=== PATIENT | female | born 1960 | race Caucasian/White ===

== ENCOUNTER → 2016-09-21 | Outpatient (CLI) | payer BC ==
[~2016-09-21] MED LIST: ALBU17IN2 PO; ASPI1TAB24 PO; BENA25CA2 PO; COLA100C PO; CYMB60CA3 PO; DICY20TA11 PO; FISH1000 PO; FLON1SPR; KEPP750T3 PO; KLON1TAB PO; LISI40TAB PO; MAGN500C PO; MAXA10TA14 PO; MOBI7.5T10 PO; NORC10TA2 PO; PHEN1SUP7 PR; PRAV10TA PO; PREV30CA11 PO; ROPI1TAB PO; VERA120T2 PO; VITA200016 PO; ZANA4CAP PO; ZONI100C2 PO
--- NOTE | 2016-09-22 16:33 | REP ---
Thyroid uptake and scan: History: Dysphagia, thyroid nodule. Comparison: Thyroid sonography August 13, 2016 showed a 10 mm hypoechoic nodule in the right thyroid lobe. Technique: 351.0 microcuries of I-123 sodium iodide is ingested and 24 or uptake value and functional images are acquired. Findings: The uptake value at 24 hours is slightly low at 20.43% (25 to 35%). Functional images demonstrate that the right lobe is a little larger than the left. No cold or warm lesion is seen. The thyroid uptake is homogeneous. Impression: Homogeneous slightly decreased uptake. No cold or warm lesion seen. Signed by Ren Iqbal MD 09/23/2016 07:59 A
== END | disposition home or self-care (01) ==
LOC: M RAD 12:24
PROVIDERS: ATTEND Family Medicine
DX: E04.1 Nontoxic single thyroid nodule (principal); R13.10 Dysphagia, unspecified; E06.3 Autoimmune thyroiditis

== ENCOUNTER → 2016-10-12 | Outpatient (CLI) | payer BC ==
[2016-10-12 12:27] LABS: ALBUMIN/GLOBULIN RATIO 1.33 (1.00-1.93); ALKALINE PHOSPHATASE 75 U/L (45-117); ALT/SGPT 24 U/L (12-78); ANION GAP 10 MEQ/L (8-16); AST/SGOT 9 U/L (15-37); BILIRUBIN,TOTAL 0.3 MG/DL (0.2-1.0); BLOOD UREA NITROGEN 17 MG/DL (7-18); CALCIUM LEVEL 8.9 MG/DL (8.5-10.1); CARBON DIOXIDE LEVEL 26 MEQ/L (21-32); CHLORIDE LEVEL 109 MEQ/L (98-107); CREATININE FOR GFR 0.77 MG/DL (0.55-1.02); GLOMERULAR FILTRATION RATE > 60.0 (>51); GLUCOSE, FASTING 90 MG/DL (70-105); POTASSIUM SERUM 3.9 MEQ/L (3.5-5.1); SODIUM LEVEL 145 MEQ/L (136-145)
== END | disposition home or self-care (01) ==
LOC: M WUC 08:26
PROVIDERS: ATTEND Family Medicine
DX: R73.01 Impaired fasting glucose (principal); E06.3 Autoimmune thyroiditis

== ENCOUNTER → 2016-12-12 | Outpatient (CLI) | payer BC ==
[~2016-12-12] MED LIST changes: -COLA100C PO; +COLA100C3 PO
[2016-12-12 18:20] LABS: BASO % 0.6 % (0.0-1.0); EOS # 0.2 K/mm3 (0.0-0.50); EOS % 4.4 % (0.0-3.0); LARGE UNSTAINED CELL # 0.1 K/mm3 (0.0-0.4); LYMPH # 1.4 K/mm3 (1.5-4.5); LYMPH % 29.1 % (24.0-44.0); MEAN CORPUSCULAR HEMOGLOBIN 28.4 pg (27.0-33.0); MEAN CORPUSCULAR HGB CONC 31.6 g/dl (32.0-36.5); MEAN CORPUSCULAR VOLUME 89.9 fl (80.0-96.0); MONO # 0.2 K/mm3 (0.0-0.8); NEUTROPHILS # 2.8 K/mm3 (1.8-7.7); NEUTROPHILS % 59.8 % (36.0-66.0); PLATELET COUNT, AUTOMATED 309 k/mm3 (150-450); RED CELL DISTRIBUTION WIDTH 13.3 % (11.5-14.5); WHITE BLOOD COUNT 4.8 K/mm3 (4.0-10.0)
[2016-12-12 18:49] LABS: ANION GAP 10 MEQ/L (8-16); BLOOD UREA NITROGEN 16 MG/DL (7-18); CALCIUM LEVEL 9.1 MG/DL (8.5-10.1); CARBON DIOXIDE LEVEL 25 MEQ/L (21-32); CHLORIDE LEVEL 110 MEQ/L (98-107); CREATININE FOR GFR 0.84 MG/DL (0.55-1.02); GLOMERULAR FILTRATION RATE > 60.0 (>51); GLUCOSE, FASTING 87 MG/DL (70-105); MAGNESIUM LEVEL 2.1 MG/DL (1.8-2.4); SODIUM LEVEL 145 MEQ/L (136-145)
== END ==
LOC: M WUC 14:28
PROVIDERS: ATTEND Physician Assistant
DX: K52.9 Noninfective gastroenteritis and colitis, unspecified (principal)

== ENCOUNTER → 2017-01-04 | Outpatient (REF) | payer BC ==
[2017-01-04 14:01] LABS: ANION GAP 9 MEQ/L (8-16); BLOOD UREA NITROGEN 17 MG/DL (7-18); CALCIUM LEVEL 8.7 MG/DL (8.5-10.1); CARBON DIOXIDE LEVEL 21 MEQ/L (21-32); CHLORIDE LEVEL 111 MEQ/L (98-107); CREATININE FOR GFR 0.72 MG/DL (0.55-1.02); GLOMERULAR FILTRATION RATE > 60.0 (>51); GLUCOSE, FASTING 108 MG/DL (70-105); POTASSIUM SERUM 3.9 MEQ/L (3.5-5.1); SODIUM LEVEL 141 MEQ/L (136-145)
== END ==
LOC: M LAB REF 12:09
PROVIDERS: ATTEND Physician Assistant
DX: R73.01 Impaired fasting glucose (principal); E06.3 Autoimmune thyroiditis

== ENCOUNTER → 2017-01-06 | Outpatient (CLI) | payer BC ==
[~2017-01-06] MED LIST changes: +E-Z-GAS II EFFERVESCENT PACKET (SODIUM BICARB./CITRIC ACID/SIMETHICONE) As Ordered ONE; +E-Z-HD 98% w/w 340GM SUSP BTL As Ordered ONE; +E-Z-PAQUE 96% w/w SUSP 176GM BTL As Ordered ONE
--- NOTE | 2017-01-06 17:17 | REP ---
ESOPHAGRAM, AIR CONTRAST: The procedure was performed under the direct supervision of Dr. Flores. The images were reviewed with Dr. Flores. A single view PA chest x-ray is submitted as a risk mgr film. There is no change compared to a previous chest x-ray performed on 08/05/2016. Liquid barium and gas-producing granules were given in the erect position as well as liquid barium in the prone oblique positions in order to perform a double contrast esophagram examination. During the oral and pharyngeal stages of deglutition there is laryngeal penetration. Esophageal transport is prompt and efficient and there is no esophagitis, stricture or mucosal ring. There is a sliding type hiatal hernia present. There is full column gastroesophageal reflux demonstrated to above the level of the inez. IMPRESSION: 1. There is laryngeal penetration. 2. There is a sliding type hiatal hernia present. There is full column gastroesophageal reflux demonstrated to above the level of the inez. 44 seconds of fluoroscopy time was utilized for this procedure. Reviewed by HANNA Ruiz 01/07/2017 04:41 PEdited and Signed by Deejay Flores MD 01/07/2017 04:59 P
== END ==
LOC: M RAD 09:23
PROVIDERS: ATTEND Otolaryngology
DX: K21.9 Gastro-esophageal reflux disease without esophagitis (principal); K44.9 Diaphragmatic hernia without obstruction or gangrene

== ENCOUNTER → 2017-01-07 | Outpatient (REF) | payer BC ==
[~2017-01-07] MED LIST changes: -E-Z-GAS II EFFERVESCENT PACKET (SODIUM BICARB./CITRIC ACID/SIMETHICONE) As Ordered ONE; -E-Z-HD 98% w/w 340GM SUSP BTL As Ordered ONE; -E-Z-PAQUE 96% w/w SUSP 176GM BTL As Ordered ONE
[2017-01-07 19:49] LABS: CALCIUM OXALATE CRYSTALS MODERATE
== END ==
LOC: M LAB REF 17:17
PROVIDERS: ATTEND Physician Assistant
DX: N39.0 Urinary tract infection, site not specified (principal)

== ENCOUNTER → 2017-02-26 | Outpatient (CLI) | payer BC ==
[~2017-02-26] MED LIST changes: +E-Z-PAQUE 96% w/w SUSP 176GM BTL As Ordered ONE; +VARIBAR NECTAR 40% w/v 240ML SUSP BTL As Ordered ONE; +VARIBAR PUDDING 40% w/v 230ML TUBE As Ordered ONE
== END ==
LOC: M ST 10:37
PROVIDERS: ATTEND Otolaryngology
DX: R13.10 Dysphagia, unspecified (principal)
CPT/HCPCS: 74230; 92611; G8996; G8997; G8998

== ENCOUNTER → 2017-02-27 | Outpatient (CLI) | payer BC ==
[~2017-02-27] MED LIST changes: -E-Z-PAQUE 96% w/w SUSP 176GM BTL As Ordered ONE; -VARIBAR NECTAR 40% w/v 240ML SUSP BTL As Ordered ONE; -VARIBAR PUDDING 40% w/v 230ML TUBE As Ordered ONE
== END ==
LOC: M WUC 14:32
PROVIDERS: ATTEND Physician Assistant Medical
DX: R55 Syncope and collapse (principal)

== ENCOUNTER 2017-04-01 13:11 | Emergency (ER) | payer BC ==
[~2017-04-01] VITALS: Ht 172.7 cm; Wt 116.4 kg
[~2017-04-01 13:11] MED LIST changes: +ASPI-161 PO; -ASPI1TAB24 PO; -COLA100C3 PO; +COLA100C5 PO; +MOBI4TAB PO; -MOBI7.5T10 PO; -NORC10TA2 PO; +NORC10TA21 PO; -PRAV10TA PO; +PRAV10TA4 PO; +PREV1CAP PO; -PREV30CA11 PO
[2017-04-01] MEDS ORDERED: MONT10TA2 (13:29)
[2017-04-01] MEDS ORDERED: VERA300C (13:29)
[2017-04-01] MEDS ORDERED: PRAM0.5T4 (13:29)
[2017-04-01] MEDS ORDERED: MELO15TA4 (13:29)
[2017-04-01] MEDS ORDERED: VALS1TAB48 (13:29)
[2017-04-01] MEDS ORDERED: BREO1INH PO (13:29)
[2017-04-01] MEDS ORDERED: NITROGLYCERIN 0.4 MG SUBL TABLET SL PRN (15:00)
[2017-04-01] MEDS ORDERED: ASPIRIN 81 MG CHEW TABLET PO ONE (15:00)
[2017-04-01 15:32] LABS: BASO % 0.7 % (0.0-1.0); EOS # 0.2 K/mm3 (0.0-0.50); EOS % 3.6 % (0.0-3.0); LARGE UNSTAINED CELL # 0.1 K/mm3 (0.0-0.4); LARGE UNSTAINED CELL % 1.2 % (0.0-4.0); LYMPH # 1.1 K/mm3 (1.5-4.5); MEAN CORPUSCULAR HEMOGLOBIN 28.7 pg (27.0-33.0); MEAN CORPUSCULAR HGB CONC 32.7 g/dl (32.0-36.5); MEAN CORPUSCULAR VOLUME 87.7 fl (80.0-96.0); MONO # 0.3 K/mm3 (0.0-0.8); MONO % 4.9 % (0.0-5.0); NEUTROPHILS # 4.3 K/mm3 (1.8-7.7); NEUTROPHILS % 71.6 % (36.0-66.0); PLATELET COUNT, AUTOMATED 330 k/mm3 (150-450); RED CELL DISTRIBUTION WIDTH 14.2 % (11.5-14.5)
[2017-04-01 15:49] LABS: INR 0.95
--- NOTE | 2017-04-01 15:54 | REP ---
Bilateral deep vein duplex ultrasound of the lower extremities: The deep veins demonstrate normal compression, normal Doppler color flow and normal Doppler waveforms with respiration and augmentation at multiple levels from the popliteal veins to the common femoral veins bilaterally. Impression: There is no deep vein thrombus on the right on the left. Signed by Deejay Koroma MD 04/01/2017 03:45 P
[2017-04-01 15:57] LABS: ALBUMIN 3.7 GM/DL (3.2-5.2); ALBUMIN/GLOBULIN RATIO 1.32 (1.00-1.93); ALKALINE PHOSPHATASE 82 U/L (45-117); ALT/SGPT 27 U/L (12-78); ANION GAP 5 MEQ/L (8-16); AST/SGOT 9 U/L (15-37); BILIRUBIN,DIRECT < 0.1 MG/DL (0.0-0.2); BILIRUBIN,TOTAL 0.2 MG/DL (0.2-1.0); BLOOD UREA NITROGEN 23 MG/DL (7-18); CALCIUM LEVEL 8.5 MG/DL (8.5-10.1); CARBON DIOXIDE LEVEL 26 MEQ/L (21-32); CHLORIDE LEVEL 114 MEQ/L (98-107); CREATININE FOR GFR 0.61 MG/DL (0.55-1.02); GLOMERULAR FILTRATION RATE > 60.0 (>51); GLUCOSE, FASTING 82 MG/DL (70-105); POTASSIUM SERUM 3.7 MEQ/L (3.5-5.1); SODIUM LEVEL 145 MEQ/L (136-145); TOTAL PROTEIN 6.5 GM/DL (6.4-8.2)
--- NOTE | 2017-04-01 15:59 | REP ---
PA and lateral chest: Comparison is 08/05/2016. The lung milan are clear. The cardiac size is normal The guillaume, mediastinum, and bony thorax are unremarkable. Impression: Negative PA and lateral chest. There is no interval change. Signed by Deejay Koroma MD 04/01/2017 03:51 P
[2017-04-01] MEDS ORDERED: ISOVUE-370 76% 100ML VIAL (Q9967) As Ordered ONE (16:14)
[2017-04-01] MEDS ORDERED: ACETAMINOPHEN TAB 650MG DOSE (2X325MG) PO ONE (16:30)
--- NOTE | 2017-04-01 16:51 | REP ---
Chest CT with IV contrast, pulmonary artery CT angiography: Comparison is 04/18/2010. There are no emboli in the pulmonary trunk or central pulmonary arteries. There are no emboli in the lobe or segment branches. There are no infiltrates or effusions. There is a hiatal hernia, not present previously. There is a 5 ml pleural-based lung nodule anterolaterally in the right upper lobe on image 41. The There is 8 mm pleural-based nodule in the right upper lobe anterolaterally on image 42. There is no hilar or mediastinal adenopathy. There is no axillary adenopathy. The thoracic aorta is unremarkable. Cardiac size is normal. The visualized upper abdominal contents are unremarkable. There is no adrenal mass. There are surgical clips in the gallbladder fossa. Impression: There are no pulmonary emboli. There are no infiltrates or effusions. There is an 8 mm right upper lobe lung nodule and 5 mm right upper lobe lung nodule. Fleischner Society guidelines for follow up of the largest of these two lesions in a low risk patient is follow-up CT at 6-12 months, then consider CT and 18-24 months. For a high risk patient CT at 6-12 months, then CT and 18 24 months. Hiatal hernia. Signed by Deejay Koroma MD 04/01/2017 04:42 P
[2017-04-01] MEDS ORDERED: METOCLOPRAMIDE INJ 10MG/2ML VIAL (J2765) IV ONE (17:45)
[2017-04-01 20:33] VITALS: BP 138/52
--- NOTE | 2017-04-02 07:32 | ECGEPIP ---
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
--- NOTE | 2017-04-02 07:35 | ECGEPIP ---
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
--- NOTE | 2017-04-02 15:10 | ED PDOC ---
Post-Departure Follow-Up radiology report faxed to Yumiko Lamar MD Apr 02, 2017 15:10
--- NOTE | 2017-04-05 07:52 | ECGEPIP ---
Stationary ECG Study [facility] - ED Test Date: 2017-04-01 Pat Name: NIMO PARKS Department: Room: - Gender: F Cardiology Physician: : 1960 Requested By: ASHOK Woodard Order Number: [id number] Reading MD: Errol Beebe Measurements Intervals [place] Rate: 73 P: 52 MA: 161 QRS: 24 QRSD: 94 T: 9 QT: 395 QTc: 437 Interpretive Statements SINUS RHYTHM NONSPECIFIC T-WAVE ABNORMALITY SIMILAR TO PRIOR ON SAME DATE Electronically Signed On 04-05-2017 7:52:06 EDT by Errol Beebe
[2017-07-15] MEDS ORDERED: BENA25CA4 PO (15:06)
[2017-07-15] MEDS ORDERED: [UNRECOGNIZED DRUG - REMARK] PO (15:06)
[2017-07-15] MEDS ORDERED: PREV1CAP PO (15:06)
[2017-07-21] MEDS ORDERED: DOXY-278 PO (10:39)
[2017-07-21] MEDS ORDERED: REGL5TAB2 PO (13:45)
[2017-07-21] MEDS ORDERED: COLA100C5 PO (13:47)
== END 2017-04-01 20:33 | disposition home or self-care (01) ==
LOC: M ED 13:11
DX: R07.9 Chest pain, unspecified (principal); R91.8 Other nonspecific abnormal finding of lung field; R06.02 Shortness of breath; M79.661 Pain in right lower leg; R11.2 Nausea with vomiting, unspecified; I10 Essential (primary) hypertension; E78.5 Hyperlipidemia, unspecified; R56.9 Unspecified convulsions; K44.9 Diaphragmatic hernia without obstruction or gangrene; E06.3 Autoimmune thyroiditis; Z88.5 Allergy status to narcotic agent; Z88.2 Allergy status to sulfonamides; Z88.8 Allergy status to other drugs, medicaments and biological substances; Z91.040 Latex allergy status; Z79.899 Other long term (current) drug therapy; Z79.82 Long term (current) use of aspirin
CPT/HCPCS: 71020; 71275; 80048; 80076; 82550; 82553; 83690; 83880; 85025; 85610; 85730; 93005; 93041; 93970; 94760; 96374; 99285; J2765; Q9967

== ENCOUNTER → 2017-04-13 | Outpatient (CLI) | payer BC ==
[~2017-04-13] MED LIST changes: +BENA25CA4 PO; +BENT10CA PO; +BREO1INH PO; +CHLO125TA PO; +CLON1TAB PO; +DEXI30CA2 PO; +DOXY-278 PO; +FLUO10CA8 PO; +HYDR200T3 PO; +LIDO1OIN2 TOP; +MELO15TA4; +META1TAB22 PO; +MONT10TA2; +NITR4TASL SL; +OMEP40CA2 PO; +ONDA4TAB6 PO; +PRAM0.5T4; +PRAM0.5T4 PO; +REGL5TAB2 PO; +SING10TA32 PO; +VALS1TAB48; +VALS1TAB48 PO; +VERA300C; +VERA300C PO; +ZOLP10TA2 PO; +[UNRECOGNIZED DRUG - REMARK] PO
[2017-04-13 13:52] LABS: ANION GAP 11 MEQ/L (8-16); BLOOD UREA NITROGEN 12 MG/DL (7-18); CALCIUM LEVEL 9.5 MG/DL (8.5-10.1); CARBON DIOXIDE LEVEL 21 MEQ/L (21-32); CHLORIDE LEVEL 113 MEQ/L (98-107); CREATININE FOR GFR 0.67 MG/DL (0.55-1.02); FREE T4 1.02 NG/DL (0.76-1.46); GLOMERULAR FILTRATION RATE > 60.0 (>51); GLUCOSE, FASTING 82 MG/DL (70-105); SODIUM LEVEL 145 MEQ/L (136-145)
== END ==
LOC: M LAB 11:41
PROVIDERS: ATTEND Physician Assistant Medical
DX: I10 Essential (primary) hypertension (principal)

== ENCOUNTER → 2017-04-19 | Outpatient (REF) | payer BC | LOC: M LABNEURO 15:09 | PROVIDERS: ATTEND Physician Assistant Medical | DX: R56.9 Unspecified convulsions (principal) ==

== ENCOUNTER → 2017-04-22 | Outpatient (CLI) | payer BC ==
--- NOTE | 2017-04-22 10:15 | REP ---
Radionuclide gastric antrum study: Imaging is performed at 2-minute intervals for 90 minutes after having the patient ingest two scrambled eggs radiolabeled with 1.02 mCi of technetium 99m sulfur colloid. The T 1/2 is 250 minutes. Normal T 1/2 is 90 minutes. Impression: Delayed gastric emptying. Signed by Deejay Koroma MD 04/22/2017 10:05 A
== END ==
LOC: M RAD 07:29
PROVIDERS: ATTEND Internal Medicine Gastroenterology
DX: K30 Functional dyspepsia (principal)
CPT/HCPCS: 78264; A9541

== ENCOUNTER 2017-05-14 15:54 | Observation (INO) | payer BC ==
[~2017-05-14] VITALS: Ht 172.7 cm; Wt 113.5 kg
[~2017-05-14 15:54] MED LIST changes: -BENA25CA4 PO; -BENT10CA PO; -CHLO125TA PO; -CLON1TAB PO; -DEXI30CA2 PO; -DOXY-278 PO; -FLUO10CA8 PO; -HYDR200T3 PO; -LIDO1OIN2 TOP; -META1TAB22 PO; -NITR4TASL SL; -OMEP40CA2 PO; -ONDA4TAB6 PO; -PRAM0.5T4 PO; -REGL5TAB2 PO; -SING10TA32 PO; -VALS1TAB48 PO; -VERA300C PO; -ZOLP10TA2 PO; -[UNRECOGNIZED DRUG - REMARK] PO
[2017-05-14] MEDS ORDERED: PRAM0.5T4 PO (16:11)
[2017-05-14] MEDS ORDERED: VERA300C PO (16:11)
[2017-05-14] MEDS ORDERED: VALS1TAB48 PO (16:11)
[2017-05-14] MEDS ORDERED: SING10TA32 PO (16:11)
[2017-05-14] MEDS ORDERED: DEXI30CA2 PO (16:12)
[2017-05-14] MEDS ORDERED: CHLO125TA PO (16:12)
[2017-05-14] MEDS ORDERED: ZOLP10TA2 PO (16:13)
[2017-05-14] MEDS: NITROGLYCERIN 0.4 MG SUBL TABLET SL PRN ×3 (18:13→19:41)
--- NOTE | 2017-05-14 18:21 | REP ---
Clinical: Chest pain . Comparison: 04/01/2017 . Technique: PA and lateral. Findings: The mediastinum and cardiac silhouette are normal. The lung milan are clear and without acute consolidation, effusion, or pneumothorax. The skeletal structures are intact and normal. Impression: 1. No acute cardiopulmonary process. Signed by Miah Nick MD 05/14/2017 06:12 P
[2017-05-14 18:33] LABS: BASO % 0.5 % (0.0-1.0); EOS # 0.3 K/mm3 (0.0-0.50); EOS % 3.6 % (0.0-3.0); LARGE UNSTAINED CELL # 0.1 K/mm3 (0.0-0.4); LARGE UNSTAINED CELL % 0.7 % (0.0-4.0); LYMPH # 1.3 K/mm3 (1.5-4.5); LYMPH % 16.9 % (24.0-44.0); MEAN CORPUSCULAR HEMOGLOBIN 27.5 pg (27.0-33.0); MEAN CORPUSCULAR HGB CONC 32.4 g/dl (32.0-36.5); MEAN CORPUSCULAR VOLUME 84.7 fl (80.0-96.0); MONO # 0.3 K/mm3 (0.0-0.8); MONO % 4.4 % (0.0-5.0); NEUTROPHILS # 5.6 K/mm3 (1.8-7.7); PLATELET COUNT, AUTOMATED 384 k/mm3 (150-450); RED CELL DISTRIBUTION WIDTH 14.2 % (11.5-14.5); WHITE BLOOD COUNT 7.6 K/mm3 (4.0-10.0)
[2017-05-14 18:40] LABS: INR 0.91
[2017-05-14 19:11] LABS: ALBUMIN 3.6 GM/DL (3.2-5.2); ALBUMIN/GLOBULIN RATIO 1.09 (1.00-1.93); ALKALINE PHOSPHATASE 104 U/L (45-117); ALT/SGPT 20 U/L (12-78); ANION GAP 8 MEQ/L (8-16); AST/SGOT 9 U/L (15-37); BILIRUBIN,DIRECT < 0.1 MG/DL (0.0-0.2); BILIRUBIN,TOTAL 0.1 MG/DL (0.2-1.0); BLOOD UREA NITROGEN 14 MG/DL (7-18); CALCIUM LEVEL 9.1 MG/DL (8.5-10.1); CARBON DIOXIDE LEVEL 27 MEQ/L (21-32); CHLORIDE LEVEL 107 MEQ/L (98-107); GLOMERULAR FILTRATION RATE > 60.0 (>51); GLUCOSE, FASTING 86 MG/DL (70-105); POTASSIUM SERUM 3.8 MEQ/L (3.5-5.1); SODIUM LEVEL 142 MEQ/L (136-145); TOTAL PROTEIN 6.9 GM/DL (6.4-8.2)
[2017-05-14] MEDS ORDERED: ACETAMINOPHEN TAB 650MG DOSE (2X325MG) PO ONE (19:45)
[2017-05-14] MEDS ORDERED: ISOVUE-370 76% 100ML VIAL (Q9967) As Ordered ONE (20:20)
[2017-05-14] MEDS ORDERED: MORPHINE 4 MG/ML 1ML SYRINGE IV ONE (21:45)
[2017-05-14] MEDS ORDERED: ONDANSETRON 4MG/2ML VIAL (J2405) IV ONE (22:30)
[2017-05-14] MEDS ORDERED: NITROGLYCERIN 2% OINT 1 GM *U/D* PKT TOP ONE (22:30)
[2017-05-14] MEDS ORDERED: GI COCKTAIL 50ML BTL(HYOSCYAMINE/MAALOX/LIDOCAINE VISCOUS)(1:3:1) PO ONE (23:00)
[2017-05-14] MEDS ORDERED: clonazePAM 0.5 MG TAB PO ONE (23:30)
[2017-05-14] MEDS ORDERED: CLON1TAB PO (23:32)
[2017-05-14] MEDS ORDERED: META1TAB22 PO (23:35)
[2017-05-14] MEDS ORDERED: LIDO1OIN2 TOP (23:35)
[2017-05-14] MEDS ORDERED: FLUO10CA8 PO (23:35)
[2017-05-14] MEDS ORDERED: HYDR200T3 PO (23:35)
[2017-05-14] MEDS ORDERED: ONDA4TAB6 PO (23:35)
[2017-05-14] MEDS ORDERED: BENT10CA PO (23:35)
[2017-05-15] VITALS (9 sets, daily range): BP systolic 103–144; BP diastolic 51–82; PULSE 82–95
[2017-05-15] MEDS ORDERED: DEXTROSE 50% 50 ML SYRINGE IV PRN
[2017-05-15] MEDS ORDERED: GLUCOSE 4 GM CHEW TABLET PO PRN
[2017-05-15] MEDS ORDERED: METAXALONE 800 MG TABLET PO PRN
[2017-05-15] MEDS ORDERED: GLUCAGON FOR INJ 1 MG VIAL (J1610) SC PRN
[2017-05-15] MEDS ORDERED: RIZATRIPTAN BENZOATE 10 MG TAB PO PRN
[2017-05-15] MEDS ORDERED: ACETAMINOPHEN TAB 650MG DOSE (2X325MG) PO PRN
[2017-05-15] MEDS ORDERED: ALBUTEROL 90 MCG/ACT 8GM HFA INHALER INH PRN
--- NOTE | 2017-05-15 00:04 | HPEPDOC ---
General Date of Admission 05/15/17 at 1203AM Chief Complaint The patient is a 56-year-old female Presented to the ER with complaints of chest pain that started this afternoon. History of Present Illness Patient is a 56 year old female with a PMHx of HTN, DLP, DM2, PLACIDO on CPAP, Seizure disorder, Hashimotos thyroiditis, Rheumatoid arthritis, Migraine headaches, Possible Gastroparesis, Fibromyalgia, Anxiety / Depression. Patient presented to the ER, brought in by her because she experienced chest pain that started at 330PM today. She noted that she was in her bedroom getting ready when she experienced the pain. She describes the pain as sub- sternal, radiating to her neck / jaw and her left arm. She describes the pain as a 10/10, pressure-like nature, occurring continuously. She noted associated nausea, without vomiting, sweating and shortness of breath. She denied palpitations. Upon arrival to the ER she received nitroglycerine SL and had improvement in her chest pain. She denied any aggravating factors. Patient has been following with Dr. Goodwin as an outpatient. She had received Holter monitor last week, as well as an echocardiogram. Results of both are reported to be normal. She is scheduled to have a stress test in the next few weeks. While in the ER patient had a subsequent blood draw and had a seizure episode. She has been on Keppra and Zonisamide. She did not receive any medications to break the seizure. Seizure resolved on its own and she was without any post- ictal symptoms. Patient denied any abdominal pain, diarrhea or urinary discomfort. She did note constipation. Home Medications Scheduled (Aspirin Adult Low Dose) 81 Mg Tab, 81 MG PO DAILY, (Reported) (Flonase Allergy Relief) 50 Mcg/Act Spr, 50 MCG NA QHS, (Reported) (Dexilant) 30 Mg Cap, 30 MG PO DAILY, (Reported) Chlorthalidone (Chlorthalidone) 12.5 Mg Halftab, 12.5 MG PO DAILY, (Reported) Clonazepam (Klonopin) 1 Mg Tab, 1 MG PO DAILY, (Reported) Clonazepam (Clonazepam) 1 Mg Tab, 2 MG PO QHS, (Reported) Fluoxetine Hcl (Fluoxetine) 10 Mg Cap, 10 MG PO QHS, (Reported) Fluticasone/Vilanterol (Breo Ellipta 100-25 Mcg/INH) 1 Inh Inh, 1 INH PO DAILY, (Reported) Hydroxychloroquine Sulfate (Hydroxychloroquine Sulfat) 200 Mg Tab, 200 MG PO BID , (Reported) Levetiracetam (Keppra Xr) 750 Mg Tab, 750 MG PO BID, (Reported) Lidocaine HCl (Lidocaine 5% Ointment) 1 Dose/35.44 Gm Oint, 1 DOSE TOP DAILY, ( Reported) ALLPIES TO BACK AND SHOULDERS Montelukast Sodium (Singulair) 10 Mg Tab, 10 MG PO QHS, (Reported) Pramipexole Dihydrochloride (Pramipexole Dihydrochlori) 0.5 Mg Tab, 0.5 MG PO QID, (Reported) Pravastatin Sod (Pravastatin Sodium) 10 Mg Tab, 10 MG PO QHS, (Reported) Valsartan (Valsartan) 320 Mg Tab, 320 MG PO DAILY, (Reported) Verapamil Hcl (Verapamil HCl ER) 300 Mg Cap, 300 MG PO QHS, (Reported) Vitamin D (Vitamin D) 2,000 Unit Cap, 2,000 UNIT PO QHS, (Reported) Zolpidem Tartrate (Zolpidem Tartrate) 10 Mg Tab, 10 MG PO QHS, (Reported) Zonisamide (Zonisamide) 100 Mg Cap, 100 MG PO QAM, (Reported) Zonisamide (Zonisamide) 100 Mg Cap, 200 MG PO QHS, (Reported) Scheduled PRN Albuterol Sulfate (Proventil Hfa) 167 Puff/6.7 Gm Aers, 2 PUFFS PO Q4HP PRN for SHORTNESS OF BREATH, (Reported) Dicyclomine Hcl (Bentyl) 10 Mg Cap, 10 MG PO Q6H PRN for ABDOMINAL PAIN, ( Reported) Metaxalone (Metaxalone) 800 Mg Tab, 800 MG PO TID PRN for MUSCLE SPASMS, ( Reported) Ondansetron (Ondansetron Odt) 4 Mg Tab, 4 MG PO Q4H PRN for NAUSEA, (Reported) Rizatriptan Benzoate (Maxalt) 10 Mg Tab, 10 MG PO DAILY PRN for MIGRAINE, ( Reported) Allergies Coded Allergies: Latex (Verified Allergy, Mild, rash, 04/01/17) Codeine (Verified Allergy, Unknown, 12/13/12) Cyclobenzaprine (Verified Allergy, Unknown, 12/13/12) Sulfa Drugs (Verified Allergy, Unknown, 12/13/12) Sulfa Drugs Cross Reactors (Verified Allergy, Unknown, 12/13/12) Sulfamethoxazole (Verified Allergy, Unknown, 12/13/12) Trimethoprim (Verified Allergy, Unknown, 12/13/12) Past Medical History Medical History HTN, DLP, DM2, PLACIDO on CPAP, Seizure disorder, Hashimotos thyroiditis, Rheumatoid arthritis, Migraine headaches, Possible Gastroparesis, Fibromyalgia, Anxiety / Depression Surgical History Right knee surgery (patella repair) Right rotator cuff injury Cholecystectomy Tonsillectomy Tubal ligation Hernia Family History - Non-contributory Social History - Denies the use of tobacco or illicit drugs; Social alcohol use - Denies recent travel or sick contacts - Lives with - 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; 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 Review of Symptoms Other systems 10 point review of systems complete; all negative otherwise stated in HPI Vital Signs - Vitals: BP 135/62, HR 80, RR 18, Sat 97%RA, Temp 96.7F - General: Lying in bed, No acute distress, Speaking in full sentences, AAOx3 - HEENT: NC, AT, PERRLA, EOMI - CVS: RRR, +S1S2 - Lungs: Fair air entry bilaterally, Clear to auscultation, No wheezing / rales / rhonchi - Abdomen: Soft, Non-distended, Non-tender - Extremities: No lower extremity edema, No calf tenderness - Neuro: No focal motor or sensory deficit - Skin: No visible rashes Laboratory Data Labs 24H Laboratory Tests 2 05/14/17 18:25: White Blood Count 7.6, Red Blood Count 4.41, Hemoglobin 12.1, Hematocrit 37.3, Mean Corpuscular Volume 84.7, Mean Corpuscular Hemoglobin 27.5, Mean Corpuscular Hemoglobin Concent 32.4, Red Cell Distribution Width 14.2, Platelet Count 384, Neutrophils (%) (Auto) 74.0H, Lymphocytes (%) (Auto) 16.9L, Monocytes (%) (Auto) 4.4, Eosinophils (%) (Auto) 3.6H, Basophils (%) (Auto) 0.5 , Neutrophils # (Auto) 5.6, Lymphocytes # (Auto) 1.3L, Monocytes # (Auto) 0.3, Eosinophils # (Auto) 0.3, Basophils # (Auto) 0.0, Large Unclassified Cells % 0.7 , Large Unclassified Cells # 0.1, Prothrombin Time 12.3L, Prothromb Time International Ratio 0.91, Activated Partial Thromboplast Time 29.1, D-Dimer, Quantitative 359.3, Anion Gap 8, Glomerular Filtration Rate > 60.0, Calcium Level 9.1, Aspartate Amino Transf (AST/SGOT) 9L, Alanine Aminotransferase (ALT/ SGPT) 20, Alkaline Phosphatase 104, Total Bilirubin 0.1L, Direct Bilirubin < 0.1 , Total Creatine Kinase 81, Creatine Kinase MB 1.0, Creatine Kinase MB Relative Index 1.23, Troponin I < 0.02, B-Type Natriuretic Peptide 27.1, Total Protein 6.9, Albumin 3.6, Albumin/Globulin Ratio 1.09, Lipase 158 05/14/17 21:59: Total Creatine Kinase 81, Creatine Kinase MB 1.0, Creatine Kinase MB Relative Index 1.23, Troponin I < 0.02 CBC/BMP Laboratory Tests 05/14/17 18:25 Red Blood Count 4.41, Mean Corpuscular Volume 84.7, Mean Corpuscular Hemoglobin 27.5, Mean Corpuscular Hemoglobin Concent 32.4, Red Cell Distribution Width 14.2 , Neutrophils (%) (Auto) 74.0 H, Lymphocytes (%) (Auto) 16.9 L, Monocytes (%) ( Auto) 4.4, Eosinophils (%) (Auto) 3.6 H, Basophils (%) (Auto) 0.5, Neutrophils # (Auto) 5.6, Lymphocytes # (Auto) 1.3 L, Monocytes # (Auto) 0.3, Eosinophils # (Auto) 0.3, Basophils # (Auto) 0.0 Plan / VTE VTE Prophylaxis Ordered?: Yes Plan Plan Chest pain - possibly 2/2 cardiac etiology, possibly 2/2 anxiety, GI, less likely PE - Presented with typical chest pain, with associated nausea, diaphoresis and shortness of breath - Physical does not reveal and chest wall tenderness - Troponin x 2 sets negative - D-dimer not elevated - EKG does not reveal any ST segment deviations or T wave inversions - Will c/w trending cardiac enzymes - s/p Nitroglycerine in the ER x3; c/w Nitroglycerine paste - s/p GI cocktail in ER - Dr. Goodwin was contacted in the ER and had advised against transfer to another facility; had recommended cardiac monitoring and serial enzymes, as well as GI cocktail - c/w ASA 81, HTN - c/w Chlorthalidone and Valsartan - c/w Verapamil; will switch from ER to short acting q6h DLP - c/w Pravastatin DM2 - Not on any medications - Will start ISS while inpatient PLACIDO on CPAP - allow home CPAP use Asthma - c/w Montelukast and Albuterol PRN - Will switch Breo to Advair while inpatient Seizure disorder - Has had seizure episode in ER; notes that she gets frequent seizures even while outpatient - c/w Keppra and Zonisamide Hashimotos thyroiditis Rheumatoid arthritis - c/w Hydroxychloroquine Migraine headaches - c/w Rizatriptan Possible Gastroparesis - Only take a PPI for this - Has not had an EGD in the past Fibromyalgia Anxiety / Depression - c/w Clonazepam, Pramipexole and Fluoxetine - Hold Zolpidem Gastrointestinal prophylaxis - Will switch home PPI to Protonix IV DVT prophylaxis - Will start Lovenox DONY MILLAN MD May 15, 2017 00:04
[2017-05-15] MEDS: PANTOPRAZOLE 40MG INJ (PROTONIX) (C9113) IV SCH ×2 (01:45→21:44)
[2017-05-15] MEDS: ZONISAMIDE 100 MG CAP (ZONEGRAN) PO SCH ×3 (01:45→21:48)
[2017-05-15] MEDS: MONTELUKAST 10 MG TAB PO SCH ×2 (01:46→21:47)
[2017-05-15] MEDS: VITAMIN D 1,000 INTERNATIONAL UNITS TABLET PO SCH ×2 (01:46→21:48)
[2017-05-15] MEDS: HYDROXYCHLOROQUINE 200 MG TAB PO SCH ×3 (01:47→21:46)
[2017-05-15] MEDS: VERAPAMIL 80 MG TAB PO SCH ×4 (01:47→18:00)
[2017-05-15] MEDS: PRAMIPEXOLE 0.25 MG TAB PO SCH ×5 (01:47→21:46)
[2017-05-15] MEDS: FLUoxetine 10 MG CAP PO SCH ×2 (01:48→21:47)
[2017-05-15] MEDS: PRAVASTATIN 10 MG TAB PO SCH ×2 (01:48→21:46)
[2017-05-15] MEDS: ADVAIR HFA 230/21MCG INHALER INH SCH ×3 (01:51→20:13)
[2017-05-15] MEDS: FLUTICASONE PROP 0.05% NASAL SPRAY 16 GM (FLONASE) SCH ×2 (01:51→21:49)
[2017-05-15] MEDS: levETIRAcetam **XR** 750MG TABLET (KEPPRA XR) PO SCH ×2 (01:52→11:08)
[2017-05-15 04:35] LABS: BASO % 0.6 % (0.0-1.0); EOS # 0.1 K/mm3 (0.0-0.50); EOS % 2.4 % (0.0-3.0); LARGE UNSTAINED CELL # 0.1 K/mm3 (0.0-0.4); LARGE UNSTAINED CELL % 1.5 % (0.0-4.0); LYMPH # 1.2 K/mm3 (1.5-4.5); LYMPH % 19.3 % (24.0-44.0); MEAN CORPUSCULAR HEMOGLOBIN 27.4 pg (27.0-33.0); MEAN CORPUSCULAR HGB CONC 32.5 g/dl (32.0-36.5); MEAN CORPUSCULAR VOLUME 84.3 fl (80.0-96.0); MONO # 0.3 K/mm3 (0.0-0.8); NEUTROPHILS # 4.2 K/mm3 (1.8-7.7); NEUTROPHILS % 71.2 % (36.0-66.0); PLATELET COUNT, AUTOMATED 338 k/mm3 (150-450); RED CELL DISTRIBUTION WIDTH 14.3 % (11.5-14.5); WHITE BLOOD COUNT 5.9 K/mm3 (4.0-10.0)
[2017-05-15 05:46] LABS: ALBUMIN 3.3 GM/DL (3.2-5.2); ALBUMIN/GLOBULIN RATIO 0.92 (1.00-1.93); ALKALINE PHOSPHATASE 133 U/L (45-117); ALT/SGPT 37 U/L (12-78); ANION GAP 9 MEQ/L (8-16); AST/SGOT 39 U/L (15-37); BILIRUBIN,TOTAL 0.2 MG/DL (0.2-1.0); BLOOD UREA NITROGEN 12 MG/DL (7-18); CALCIUM LEVEL 8.5 MG/DL (8.5-10.1); CARBON DIOXIDE LEVEL 26 MEQ/L (21-32); CHLORIDE LEVEL 107 MEQ/L (98-107); CREATININE FOR GFR 0.79 MG/DL (0.55-1.02); GLOMERULAR FILTRATION RATE > 60.0 (>51); GLUCOSE, FASTING 100 MG/DL (70-105); MAGNESIUM LEVEL 2.2 MG/DL (1.8-2.4); POTASSIUM SERUM 3.3 MEQ/L (3.5-5.1); SODIUM LEVEL 142 MEQ/L (136-145); TOTAL PROTEIN 6.9 GM/DL (6.4-8.2)
[2017-05-15] MEDS: HumaLOG INSULIN (NovoLOG) PER UNIT SC SCH ×4 (07:30→22:48)
--- NOTE | 2017-05-15 09:59 | ECGEPIP ---
Stationary ECG Study [facility] Test Date: 2017-05-15 Pat Name: NIMO PARKS Department: Room: [place] [address] Gender: F Cd Technician: DELLA : 1960 Requested By: DONY MILLAN Order Number: [id number] Reading MD: Juni Goodwin Measurements Intervals [place] Rate: 70 P: 50 [place]: 181 QRS: 10 QRSD: 105 T: 31 QT: 394 QTc: 427 Interpretive Statements SINUS RHYTHM NONSPECIFIC T-WAVE ABNORMALITY No change from tracing 04/09/17. Electronically Signed On 05-15-2017 9:58:50 EDT by Juni Goodwin
[2017-05-15] MEDS: clonazePAM 1 MG TAB PO SCH ×2 (10:34→21:46)
[2017-05-15] MEDS: ENOXAPARIN 40 MG/0.4 ML SYRINGE (J1650) SC SCH (10:34)
[2017-05-15] MEDS: ASPIRIN 81 MG ENTERIC TAB PO SCH (10:35)
[2017-05-15] MEDS: VALSARTAN 80 MG TAB (DIOVAN) PO SCH (10:35)
[2017-05-15] MEDS: CHLORTHALIDONE 12.5MG PER 1/2 TABLET PO SCH (11:09)
[2017-05-15] MEDS: LIDOCAINE 5% OINT 30 GM TOP SCH (11:10)
[2017-05-15] MEDS ORDERED: POTASSIUM CHLORIDE 10 MEQ SR TABLET PO ONE (11:45)
[2017-05-15] MEDS ORDERED: ALBUTEROL SULFATE 2.5 MG/0.5 ML INH NEB SOLN NEB PRN (12:00)
--- NOTE | 2017-05-15 12:03 | IPNPDOC ---
Subjective Date Seen The patient was seen on 05/15/17. Subjective Chief Complaint/HPI The patient is a 56-year-old female admitted with a reason for visit of Chest Pain. Events since last encounter no chest pain or jaw pain this morning . yesterday subsided after 3 doses of nitro. Pateint has been having off and on chest pain 2 to 3 times a week for the whole summer and increasing sob. It had got so bad that she is not able to climb one fight of stairs now. Had seen Dr Goodwin 1 month ago , had gained lots of weight over a month and so started on HCTZ. last week had holter and echo done at the office. Objective Physical Examination General Exam: Positive: Alert, Cooperative, No Acute Distress Eye Exam: Positive: PERRLA, Conjunctiva & lids normal, EOMI, Negative: Sclera icteric ENT Exam: Positive: Atraumatic, Mucous membr. moist/pink, Pharynx Normal Neck Exam: Positive: Supple, Negative: JVD, thyromegaly Chest Exam: Positive: Clear to auscultation, Normal air movement Heart Exam: Positive: Rate Normal, Regular Rhythm, Normal S1, Normal S2, Negative: Murmurs, Rubs Telemetry: Positive: No significant arrhythmia Abdomen Exam: Positive: Normal bowel sounds, Soft, Negative: Tenderness, Hepatospenomegaly Extremity Exam: Positive: Normal pulses, Negative: Clubbing, Cyanosis, Edema Skin Exam: Positive: Nl turgor and temperature, Negative: Rash, Breakdown Assessment /Plan Problems (1) Chest pain Status: Acute Problem Text: EKGs show st-t wave abnormalities but no dynamic changes , cardiac enzymes her negative however patient is high risk for underlying CAD so will need further work up as an outpatient. Has been scheduled for stress test on jun 07 will monitor on telemetry. Discussed with Dr Goodwin about her echo ; shows normal EF, no pulmonary hypertension moderate mitral regurgitation. Holter showed normal rhythm with all her symptoms. continue statin, asa. (2) Dyspnea Status: Acute Problem Text: Echo with Dr goodwin showed normal EF of 65%, no pulmonary hypertension , no wall motion abnormality, moderate mitral regurgitation started recently on HCTZ with some loss in weight will continue the same. (3) Mitral valve prolapse Status: Chronic (4) Asthma Status: Chronic Problem Text: on advair, singulair continue albuterol nebs prn. (5) PLACIDO (obstructive sleep apnea) Status: Chronic Problem Text: uses CPAP (6) Diabetes Status: Chronic (7) Hypertension Status: Chronic Problem Text: continue verapamil, valsartan (8) Hyperlipidemia Status: Chronic Problem Text: continue statin (9) Seizure disorder Status: Chronic Problem Text: on keppra and zonisamide. (10) Rheumatoid arthritis Status: Chronic Problem Text: on HCQS (11) Anxiety and depression Status: Chronic Problem Text: on clonazepam and fluoxetine (12) Migraine Status: Chronic Problem Text: on verapamil (13) Fibromyalgia Status: Chronic Problem Text: on skelaxin (14) Gastroparesis Status: Chronic Problem Text: continue on GI coctail for now and pantoprazole. (15) Benita's thyroiditis Status: Chronic Plan/VTE VTE Prophylaxis Ordered?: Yes VS, I&O, 24H, Fishbone Vital Signs/I&O Vital Signs Date Time Temp Pulse Resp B/P (MAP) Pulse Ox O2 Delivery O2 Flow Rate FiO2 05/15/17 10:35 118/72 05/15/17 08:00 98.2 72 18 100 Room Air I&O- Last 24 Hours up to 6 AM 05/15/17 06:00 Intake Total 0 ml Balance 0 ml Laboratory Data 24H LABS Laboratory Tests 2 05/14/17 18:25: White Blood Count 7.6, Red Blood Count 4.41, Hemoglobin 12.1, Hematocrit 37.3, Mean Corpuscular Volume 84.7, Mean Corpuscular Hemoglobin 27.5, Mean Corpuscular Hemoglobin Concent 32.4, Red Cell Distribution Width 14.2, Platelet Count 384, Neutrophils (%) (Auto) 74.0H, Lymphocytes (%) (Auto) 16.9L, Monocytes (%) (Auto) 4.4, Eosinophils (%) (Auto) 3.6H, Basophils (%) (Auto) 0.5 , Neutrophils # (Auto) 5.6, Lymphocytes # (Auto) 1.3L, Monocytes # (Auto) 0.3, Eosinophils # (Auto) 0.3, Basophils # (Auto) 0.0, Large Unclassified Cells % 0.7 , Large Unclassified Cells # 0.1, Prothrombin Time 12.3L, Prothromb Time International Ratio 0.91, Activated Partial Thromboplast Time 29.1, D-Dimer, Quantitative 359.3, Anion Gap 8, Glomerular Filtration Rate > 60.0, Calcium Level 9.1, Aspartate Amino Transf (AST/SGOT) 9L, Alanine Aminotransferase (ALT/ SGPT) 20, Alkaline Phosphatase 104, Total Bilirubin 0.1L, Direct Bilirubin < 0.1 , Total Creatine Kinase 81, Creatine Kinase MB 1.0, Creatine Kinase MB Relative Index 1.23, Troponin I < 0.02, B-Type Natriuretic Peptide 27.1, Total Protein 6.9, Albumin 3.6, Albumin/Globulin Ratio 1.09, Lipase 158 05/14/17 21:59: Total Creatine Kinase 81, Creatine Kinase MB 1.0, Creatine Kinase MB Relative Index 1.23, Troponin I < 0.02 05/15/17 04:00: White Blood Count 5.9, Red Blood Count 4.12, Hemoglobin 11.3L, Hematocrit 34.8L , Mean Corpuscular Volume 84.3, Mean Corpuscular Hemoglobin 27.4, Mean Corpuscular Hemoglobin Concent 32.5, Red Cell Distribution Width 14.3, Platelet Count 338, Neutrophils (%) (Auto) 71.2H, Lymphocytes (%) (Auto) 19.3L, Monocytes (%) (Auto) 5.0, Eosinophils (%) (Auto) 2.4, Basophils (%) (Auto) 0.6, Neutrophils # (Auto) 4.2, Lymphocytes # (Auto) 1.2L, Monocytes # (Auto) 0.3, Eosinophils # (Auto) 0.1, Basophils # (Auto) 0.0, Large Unclassified Cells % 1.5 , Large Unclassified Cells # 0.1, Anion Gap 9, Glomerular Filtration Rate > 60.0 , Calcium Level 8.5, Aspartate Amino Transf (AST/SGOT) 39H, Alanine Aminotransferase (ALT/SGPT) 37, Alkaline Phosphatase 133H, Total Bilirubin 0.2# , Total Creatine Kinase 60, Creatine Kinase MB 1.0, Creatine Kinase MB Relative Index 1.66, Troponin I < 0.02, Total Protein 6.9, Albumin 3.3, Albumin/Globulin Ratio 0.92L, Blood Urea Nitrogen 12, Creatinine 0.79, Sodium Level 142, Potassium Level 3.3L, Chloride Level 107, Carbon Dioxide Level 26, Magnesium Level 2.2 05/15/17 09:57: Total Creatine Kinase 61, Creatine Kinase MB 1.0, Creatine Kinase MB Relative Index 1.63, Troponin I < 0.02 CBC/BMP Laboratory Tests 05/14/17 18:25 Red Blood Count 4.41, Mean Corpuscular Volume 84.7, Mean Corpuscular Hemoglobin 27.5, Mean Corpuscular Hemoglobin Concent 32.4, Red Cell Distribution Width 14.2 , Neutrophils (%) (Auto) 74.0 H, Lymphocytes (%) (Auto) 16.9 L, Monocytes (%) ( Auto) 4.4, Eosinophils (%) (Auto) 3.6 H, Basophils (%) (Auto) 0.5, Neutrophils # (Auto) 5.6, Lymphocytes # (Auto) 1.3 L, Monocytes # (Auto) 0.3, Eosinophils # (Auto) 0.3, Basophils # (Auto) 0.0 05/15/17 04:00 Red Blood Count 4.12, Mean Corpuscular Volume 84.3, Mean Corpuscular Hemoglobin 27.4, Mean Corpuscular Hemoglobin Concent 32.5, Red Cell Distribution Width 14.3 , Neutrophils (%) (Auto) 71.2 H, Lymphocytes (%) (Auto) 19.3 L, Monocytes (%) ( Auto) 5.0, Eosinophils (%) (Auto) 2.4, Basophils (%) (Auto) 0.6, Neutrophils # ( Auto) 4.2, Lymphocytes # (Auto) 1.2 L, Monocytes # (Auto) 0.3, Eosinophils # ( Auto) 0.1, Basophils # (Auto) 0.0, Calcium Level 8.5, Aspartate Amino Transf ( AST/SGOT) 39 H, Alanine Aminotransferase (ALT/SGPT) 37, Total Creatine Kinase 60 , Alkaline Phosphatase 133 H, Total Bilirubin 0.2 #, Total Protein 6.9, Albumin 3.3 GILMA ENRIQUEZ MD May 15, 2017 12:03
[2017-05-15] MEDS: NITROGLYCERIN 0.4 MG SUBL TABLET SL PRN (14:44)
[2017-05-15] MEDS ORDERED: GI COCKTAIL 50ML BTL(HYOSCYAMINE/MAALOX/LIDOCAINE VISCOUS)(1:3:1) PO ONE (16:00)
[2017-05-15] MEDS: ACETAMINOPHEN 500 MG TAB PO PRN (18:10)
--- NOTE | 2017-05-15 19:19 | ECGEPIP ---
Stationary ECG Study [facility] - ED Test Date: 2017-05-14 Pat Name: NIMO PARKS Department: Room: - Gender: F Jboss Architect: MIGUEL : 1960 Requested By: Errol Williamson Order Number: [id number] Reading MD: Ayaan Reynolds Measurements Intervals [place] Rate: 97 P: 54 [place]: 174 QRS: 23 QRSD: 110 T: 73 QT: 390 QTc: 496 Interpretive Statements SINUS RHYTHM LOW QRS VOLTAGE IN PRECORDIAL LEADS NONSPECIFIC ST & T-WAVE ABNORMALITY BASELINE ARTIFACT MAY AFFECT READING CW 03/[address] T WAVE CHANGES Electronically Signed On 05-15-2017 19:19:12 EDT by Ayaan Reynolds
--- NOTE | 2017-05-15 19:29 | ECGEPIP ---
Stationary ECG Study [facility] - ED Test Date: 2017-05-14 Pat Name: NIMO PARKS Department: Room: [place] [address] Gender: F Bisque Kiln Placer: christopher : 1960 Requested By: ASHOK Woodard Order Number: [id number] Reading MD: Ayaan Reynolds Measurements Intervals [place] Rate: 81 P: 50 [place]: 167 QRS: 18 QRSD: 94 T: 23 QT: 368 QTc: 430 Interpretive Statements SINUS RHYTHM LOW QRS VOLTAGE IN PRECORDIAL LEADS NONSPECIFIC T-WAVE ABNORMALITY CW 05/14/17 RATE DECREASED Electronically Signed On 05-15-2017 19:29:19 EDT by Ayaan Reynolds
--- NOTE | 2017-05-15 19:31 | ECGEPIP ---
Stationary ECG Study [facility] - ED Test Date: 2017-05-14 Pat Name: NIMO PARKS Department: Room: [place] [address] Gender: F Sack Department Supervisor: christopher : 1960 Requested By: ASHOK Woodard Order Number: [id number] Reading MD: Ayaan Reynolds Measurements Intervals [place] Rate: 79 P: [place]: 0 QRS: 13 QRSD: 98 T: 33 QT: 366 QTc: 422 Interpretive Statements TREMENDOUS BASELINE ARTIFACT UNABLE TO DEFINITIVELY DETERMINE RHYTHM THOUGH SUSPECT NSR LOW QRS VOLTAGE IN PRECORDIAL LEADS NONSPECIFIC T-WAVE ABNORMALITY CW 05/14/17 RATE DECREASED Electronically Signed On 05-15-2017 19:31:15 EDT by Ayaan Reynolds
[2017-05-16] VITALS (7 sets, daily range): BP systolic 103–136; BP diastolic 53–79
[2017-05-16] MEDS: VERAPAMIL 80 MG TAB PO SCH ×5 (00:39→23:34)
[2017-05-16] MEDS: ONDANSETRON 4 MG TAB (S0181) PO PRN ×3 (01:03→20:20)
[2017-05-16 05:20] LABS: BASO % 0.5 % (0.0-1.0); EOS # 0.2 K/mm3 (0.0-0.50); EOS % 3.4 % (0.0-3.0); LARGE UNSTAINED CELL # 0.1 K/mm3 (0.0-0.4); MEAN CORPUSCULAR HEMOGLOBIN 26.9 pg (27.0-33.0); MEAN CORPUSCULAR HGB CONC 31.4 g/dl (32.0-36.5); MEAN CORPUSCULAR VOLUME 85.7 fl (80.0-96.0); MONO # 0.3 K/mm3 (0.0-0.8); MONO % 4.5 % (0.0-5.0); NEUTROPHILS # 4.2 K/mm3 (1.8-7.7); NEUTROPHILS % 73.6 % (36.0-66.0); PLATELET COUNT, AUTOMATED 374 k/mm3 (150-450); RED CELL DISTRIBUTION WIDTH 14.4 % (11.5-14.5); WHITE BLOOD COUNT 5.7 K/mm3 (4.0-10.0)
[2017-05-16] MEDS: ACETAMINOPHEN 500 MG TAB PO PRN (05:32)
[2017-05-16 05:38] LABS: ALBUMIN 3.3 GM/DL (3.2-5.2); ALBUMIN/GLOBULIN RATIO 0.94 (1.00-1.93); ALKALINE PHOSPHATASE 107 U/L (45-117); ALT/SGPT 28 U/L (12-78); ANION GAP 8 MEQ/L (8-16); AST/SGOT 15 U/L (15-37); BILIRUBIN,TOTAL 0.2 MG/DL (0.2-1.0); BLOOD UREA NITROGEN 13 MG/DL (7-18); CALCIUM LEVEL 8.7 MG/DL (8.5-10.1); CARBON DIOXIDE LEVEL 26 MEQ/L (21-32); CHLORIDE LEVEL 107 MEQ/L (98-107); CREATININE FOR GFR 0.77 MG/DL (0.55-1.02); GLOMERULAR FILTRATION RATE > 60.0 (>51); GLUCOSE, FASTING 105 MG/DL (70-105); MAGNESIUM LEVEL 2.4 MG/DL (1.8-2.4); POTASSIUM SERUM 3.5 MEQ/L (3.5-5.1); SODIUM LEVEL 141 MEQ/L (136-145); TOTAL PROTEIN 6.8 GM/DL (6.4-8.2)
[2017-05-16] MEDS: ADVAIR HFA 230/21MCG INHALER INH SCH ×2 (07:13→20:28)
[2017-05-16] MEDS: clonazePAM 1 MG TAB PO SCH ×2 (08:00→20:19)
[2017-05-16] MEDS ORDERED: INFLUENZA QUADRIVALENT PF VACCINE 0.5ML SYRINGE (90686) IM ONE (09:00)
[2017-05-16] MEDS: HumaLOG INSULIN (NovoLOG) PER UNIT SC SCH ×4 (09:28→20:07)
[2017-05-16] MEDS: LIDOCAINE 5% OINT 30 GM TOP SCH (09:29)
[2017-05-16] MEDS: ENOXAPARIN 40 MG/0.4 ML SYRINGE (J1650) SC SCH (09:29)
[2017-05-16] MEDS: VALSARTAN 80 MG TAB (DIOVAN) PO SCH (09:30)
[2017-05-16] MEDS: ASPIRIN 81 MG ENTERIC TAB PO SCH (09:31)
[2017-05-16] MEDS: CHLORTHALIDONE 12.5MG PER 1/2 TABLET PO SCH (09:31)
[2017-05-16] MEDS: levETIRAcetam **XR** 750MG TABLET (KEPPRA XR) PO SCH ×2 (09:31→20:20)
[2017-05-16] MEDS: HYDROXYCHLOROQUINE 200 MG TAB PO SCH ×2 (09:31→20:19)
[2017-05-16] MEDS: PRAMIPEXOLE 0.25 MG TAB PO SCH ×4 (09:31→20:19)
[2017-05-16] MEDS: ZONISAMIDE 100 MG CAP (ZONEGRAN) PO SCH ×2 (09:32→20:20)
[2017-05-16] MEDS ORDERED: RIZATRIPTAN MLT 10 MG TAB PO PRN (10:15)
--- NOTE | 2017-05-16 11:38 | IPNPDOC ---
Subjective Date Seen The patient was seen on 05/16/17. Subjective Chief Complaint/HPI The patient is a 56-year-old female admitted with a reason for visit of Chest Pain. Events since last encounter patient continues to have sharp pains in the left costochondral junction second and third extending towards the axilla which is worse with movement of the left arm, had multiple cardiac markers and ekgs . tele did show 2 episodes of narrow complex arrhythmia of less than 30 seconds looks like MAT or afib. this am with severe headache with nausea, poor appetite , vomited last night . says is having a migraine attack. Objective Physical Examination General Exam: Positive: Alert, Cooperative, No Acute Distress Eye Exam: Positive: PERRLA, Conjunctiva & lids normal, EOMI, Negative: Sclera icteric ENT Exam: Positive: Atraumatic, Mucous membr. moist/pink, Pharynx Normal Neck Exam: Positive: Supple, Negative: JVD, thyromegaly Chest Exam: Positive: Clear to auscultation, Normal air movement Heart Exam: Positive: Rate Normal, Regular Rhythm, Normal S1, Normal S2, Negative: Murmurs, Rubs Telemetry: Positive: No significant arrhythmia Abdomen Exam: Positive: Normal bowel sounds, Soft, Negative: Tenderness, Hepatospenomegaly Extremity Exam: Positive: Normal pulses, Negative: Clubbing, Cyanosis, Edema Skin Exam: Positive: Nl turgor and temperature, Negative: Rash, Breakdown Assessment /Plan Problems (1) Chest pain Status: Acute Problem Text: Most probably musculoskeletal in nature. Vs GERD or esophageal spasm as did have some response to nitro. EKGs show st-t wave abnormalities but no dynamic changes , cardiac enzymes her negative however patient is high risk for underlying CAD so will need further work up as an outpatient. Has been scheduled for stress test on jun 07 will monitor on telemetry. Discussed with Dr Goodwin about her echo ; shows normal EF, no pulmonary hypertension moderate mitral regurgitation. Holter showed normal rhythm with all her symptoms. continue statin, asa. (2) Dyspnea Status: Acute Problem Text: Echo with Dr goodwin showed normal EF of 65%, no pulmonary hypertension , no wall motion abnormality, moderate mitral regurgitation started recently on HCTZ with some loss in weight will continue the same. (3) Mitral valve prolapse Status: Chronic (4) Asthma Status: Chronic Problem Text: on advair, singulair continue albuterol nebs prn. (5) PLACIDO (obstructive sleep apnea) Status: Chronic Problem Text: uses CPAP (6) Diabetes Status: Chronic (7) Hypertension Status: Chronic Problem Text: continue verapamil, valsartan (8) Hyperlipidemia Status: Chronic Problem Text: continue statin (9) Seizure disorder Status: Chronic Problem Text: on keppra and zonisamide. (10) Rheumatoid arthritis Status: Chronic Problem Text: on HCQS (11) Anxiety and depression Status: Chronic Problem Text: on clonazepam and fluoxetine (12) Migraine Status: Chronic Problem Text: on verapamil today having an acute attack will give rizatriptan. (13) Fibromyalgia Status: Chronic Problem Text: on skelaxin (14) Gastroparesis Status: Chronic Problem Text: continue on GI coctail for now and pantoprazole. (15) Benita's thyroiditis Status: Chronic Plan/VTE VTE Prophylaxis Ordered?: Yes VS, I&O, 24H, Fishbone Vital Signs/I&O Vital Signs Date Time Temp Pulse Resp B/P (MAP) Pulse Ox O2 Delivery O2 Flow Rate FiO2 05/16/17 09:30 119/62 05/16/17 08:00 97.3 90 18 97 Room Air I&O- Last 24 Hours up to 6 AM 05/16/17 06:00 Intake Total 660 ml Output Total 1350 ml Balance -690 ml Laboratory Data 24H LABS Laboratory Tests 2 05/15/17 15:07: Total Creatine Kinase 71, Creatine Kinase MB 1.0, Creatine Kinase MB Relative Index 1.40, Troponin I < 0.02 05/16/17 04:28: White Blood Count 5.7, Red Blood Count 4.22, Hemoglobin 11.4L, Hematocrit 36.1, Mean Corpuscular Volume 85.7, Mean Corpuscular Hemoglobin 26.9L, Mean Corpuscular Hemoglobin Concent 31.4L, Red Cell Distribution Width 14.4, Platelet Count 374, Neutrophils (%) (Auto) 73.6H, Lymphocytes (%) (Auto) 17.0L, Monocytes (%) (Auto) 4.5, Eosinophils (%) (Auto) 3.4H, Basophils (%) (Auto) 0.5 , Neutrophils # (Auto) 4.2, Lymphocytes # (Auto) 1.0L, Monocytes # (Auto) 0.3, Eosinophils # (Auto) 0.2, Basophils # (Auto) 0.0, Large Unclassified Cells % 1.0 , Large Unclassified Cells # 0.1, Anion Gap 8, Glomerular Filtration Rate > 60.0 , Blood Urea Nitrogen 13, Creatinine 0.77, Sodium Level 141, Potassium Level 3.5 , Chloride Level 107, Carbon Dioxide Level 26, Calcium Level 8.7, Aspartate Amino Transf (AST/SGOT) 15, Alanine Aminotransferase (ALT/SGPT) 28, Alkaline Phosphatase 107, Total Bilirubin 0.2, Total Protein 6.8, Albumin 3.3, Magnesium Level 2.4, Albumin/Globulin Ratio 0.94L CBC/BMP Laboratory Tests 05/16/17 04:28 Red Blood Count 4.22, Mean Corpuscular Volume 85.7, Mean Corpuscular Hemoglobin 26.9 L, Mean Corpuscular Hemoglobin Concent 31.4 L, Red Cell Distribution Width 14.4, Neutrophils (%) (Auto) 73.6 H, Lymphocytes (%) (Auto) 17.0 L, Monocytes (% ) (Auto) 4.5, Eosinophils (%) (Auto) 3.4 H, Basophils (%) (Auto) 0.5, Neutrophils # (Auto) 4.2, Lymphocytes # (Auto) 1.0 L, Monocytes # (Auto) 0.3, Eosinophils # (Auto) 0.2, Basophils # (Auto) 0.0, Calcium Level 8.7, Aspartate Amino Transf (AST/SGOT) 15, Alanine Aminotransferase (ALT/SGPT) 28, Alkaline Phosphatase 107, Total Bilirubin 0.2, Total Protein 6.8, Albumin 3.3 GILMA ENRIQUEZ MD May 16, 2017 11:38
[2017-05-16] MEDS ORDERED: KETOROLAC 30 MG/ML VIAL (J1885) IV ONE (12:00)
[2017-05-16] MEDS ORDERED: INFLUENZA QUADRIVALENT PF VACCINE 0.5ML SYRINGE (90686) IM PRN (12:15)
--- NOTE | 2017-05-16 13:30 | ECGEPIP ---
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
[2017-05-16] MEDS: PANTOPRAZOLE 40MG INJ (PROTONIX) (C9113) IV SCH (20:18)
[2017-05-16] MEDS: MONTELUKAST 10 MG TAB PO SCH (20:19)
[2017-05-16] MEDS: VITAMIN D 1,000 INTERNATIONAL UNITS TABLET PO SCH (20:19)
[2017-05-16] MEDS: PRAVASTATIN 10 MG TAB PO SCH (20:20)
[2017-05-16] MEDS: FLUoxetine 10 MG CAP PO SCH (20:20)
[2017-05-16] MEDS: FLUTICASONE PROP 0.05% NASAL SPRAY 16 GM (FLONASE) SCH (20:20)
[2017-05-17 04:00] VITALS: BP 119/64
[2017-05-17] MEDS ORDERED: KETOROLAC 30 MG/ML VIAL (J1885) IV ONE (05:15)
[2017-05-17] MEDS: VERAPAMIL 80 MG TAB PO SCH ×2 (05:25→11:43)
[2017-05-17 05:50] LABS: BASO % 0.6 % (0.0-1.0); EOS # 0.2 K/mm3 (0.0-0.50); EOS % 3.2 % (0.0-3.0); LARGE UNSTAINED CELL # 0.1 K/mm3 (0.0-0.4); LARGE UNSTAINED CELL % 1.6 % (0.0-4.0); LYMPH # 0.8 K/mm3 (1.5-4.5); MEAN CORPUSCULAR HEMOGLOBIN 27.7 pg (27.0-33.0); MEAN CORPUSCULAR HGB CONC 32.1 g/dl (32.0-36.5); MEAN CORPUSCULAR VOLUME 86.3 fl (80.0-96.0); MONO # 0.3 K/mm3 (0.0-0.8); MONO % 4.6 % (0.0-5.0); NEUTROPHILS # 4.1 K/mm3 (1.8-7.7); PLATELET COUNT, AUTOMATED 335 k/mm3 (150-450); RED CELL DISTRIBUTION WIDTH 14.5 % (11.5-14.5); WHITE BLOOD COUNT 5.4 K/mm3 (4.0-10.0)
[2017-05-17 05:52] LABS: ALBUMIN 3.3 GM/DL (3.2-5.2); ALBUMIN/GLOBULIN RATIO 1.03 (1.00-1.93); ALKALINE PHOSPHATASE 100 U/L (45-117); ALT/SGPT 26 U/L (12-78); ANION GAP 9 MEQ/L (8-16); AST/SGOT 10 U/L (15-37); BILIRUBIN,TOTAL 0.2 MG/DL (0.2-1.0); BLOOD UREA NITROGEN 17 MG/DL (7-18); CALCIUM LEVEL 8.9 MG/DL (8.5-10.1); CARBON DIOXIDE LEVEL 26 MEQ/L (21-32); CHLORIDE LEVEL 106 MEQ/L (98-107); CREATININE FOR GFR 0.85 MG/DL (0.55-1.02); GLOMERULAR FILTRATION RATE > 60.0 (>51); GLUCOSE, FASTING 110 MG/DL (70-105); MAGNESIUM LEVEL 2.4 MG/DL (1.8-2.4); POTASSIUM SERUM 3.8 MEQ/L (3.5-5.1); SODIUM LEVEL 141 MEQ/L (136-145); TOTAL PROTEIN 6.5 GM/DL (6.4-8.2)
[2017-05-17] MEDS: ADVAIR HFA 230/21MCG INHALER INH SCH (07:02)
[2017-05-17 07:30] VITALS: BP 113/68
[2017-05-17] MEDS: ENOXAPARIN 40 MG/0.4 ML SYRINGE (J1650) SC SCH (08:47)
[2017-05-17] MEDS: HumaLOG INSULIN (NovoLOG) PER UNIT SC SCH ×2 (08:47→11:44)
[2017-05-17] MEDS: CHLORTHALIDONE 12.5MG PER 1/2 TABLET PO SCH (08:47)
[2017-05-17] MEDS: PRAMIPEXOLE 0.25 MG TAB PO SCH ×2 (08:48→11:41)
[2017-05-17] MEDS: levETIRAcetam **XR** 750MG TABLET (KEPPRA XR) PO SCH (08:48)
[2017-05-17] MEDS: HYDROXYCHLOROQUINE 200 MG TAB PO SCH (08:48)
[2017-05-17] MEDS: clonazePAM 1 MG TAB PO SCH (08:48)
[2017-05-17] MEDS: ZONISAMIDE 100 MG CAP (ZONEGRAN) PO SCH (08:48)
[2017-05-17] MEDS: VALSARTAN 80 MG TAB (DIOVAN) PO SCH (08:48)
[2017-05-17] MEDS: ASPIRIN 81 MG ENTERIC TAB PO SCH (08:48)
[2017-05-17] MEDS: LIDOCAINE 5% OINT 30 GM TOP SCH (08:49)
[2017-05-17] MEDS ORDERED: NITR4TASL SL (10:58)
--- NOTE | 2017-05-17 11:03 | IPNPDOC ---
Subjective Date Seen The patient was seen on 05/17/17. Subjective Chief Complaint/HPI The patient is a 56-year-old female admitted with a reason for visit of Chest Pain. Events since last encounter feeling better , having some chest pain off and on but better , no headache this am . Objective Physical Examination General Exam: Positive: Alert, Cooperative, No Acute Distress Eye Exam: Positive: PERRLA, Conjunctiva & lids normal, EOMI, Negative: Sclera icteric ENT Exam: Positive: Atraumatic, Mucous membr. moist/pink, Pharynx Normal Neck Exam: Positive: Supple, Negative: JVD, thyromegaly Chest Exam: Positive: Clear to auscultation, Normal air movement Heart Exam: Positive: Rate Normal, Regular Rhythm, Normal S1, Normal S2, Negative: Murmurs, Rubs Telemetry: Positive: No significant arrhythmia Abdomen Exam: Positive: Normal bowel sounds, Soft, Negative: Tenderness, Hepatospenomegaly Extremity Exam: Positive: Normal pulses, Negative: Clubbing, Cyanosis, Edema Skin Exam: Positive: Nl turgor and temperature, Negative: Rash, Breakdown Assessment /Plan Problems (1) Chest pain Status: Acute Problem Text: Most probably musculoskeletal in nature. Vs GERD or esophageal spasm as did have some response to nitro. EKGs show st-t wave abnormalities but no dynamic changes , cardiac enzymes her negative however patient is high risk for underlying CAD so will need further work up as an outpatient. Has been scheduled for stress test on jun 07 will monitor on telemetry. Discussed with Dr Goodwin about her echo ; shows normal EF, no pulmonary hypertension moderate mitral regurgitation. Holter showed normal rhythm with all her symptoms. continue statin, asa. (2) Dyspnea Status: Acute Problem Text: Echo with Dr goodwin showed normal EF of 65%, no pulmonary hypertension , no wall motion abnormality, moderate mitral regurgitation started recently on HCTZ with some loss in weight will continue the same. (3) Mitral valve prolapse Status: Chronic (4) Asthma Status: Chronic Problem Text: on advair, singulair continue albuterol nebs prn. (5) PLACIDO (obstructive sleep apnea) Status: Chronic Problem Text: uses CPAP (6) Diabetes Status: Chronic (7) Hypertension Status: Chronic Problem Text: continue verapamil, valsartan (8) Hyperlipidemia Status: Chronic Problem Text: continue statin (9) Seizure disorder Status: Chronic Problem Text: on keppra and zonisamide. (10) Rheumatoid arthritis Status: Chronic Problem Text: on HCQS (11) Anxiety and depression Status: Chronic Problem Text: on clonazepam and fluoxetine (12) Migraine Status: Chronic Problem Text: on verapamil and rizatriptan prn (13) Fibromyalgia Status: Chronic Problem Text: on skelaxin (14) Gastroparesis Status: Chronic Problem Text: continue on GI coctail for now and pantoprazole. (15) Benita's thyroiditis Status: Chronic Plan/VTE VTE Prophylaxis Ordered?: Yes Disposition discharge home VS, [facility]&O, [facility] Vital Signs/I&O Vital Signs Date Time Temp Pulse Resp B/P (MAP) Pulse Ox O2 Delivery O2 Flow Rate FiO2 05/17/17 08:48 119/64 05/17/17 07:30 96.0 83 18 100 NIPPV (BIPAP/CPAP) I&O- Last 24 Hours up to 6 AM 05/17/17 06:00 Intake Total 525 ml Output Total 550 ml Balance -25 ml Laboratory Data 24H LABS Laboratory Tests 2 05/17/17 04:34: White Blood Count 5.4, Red Blood Count 3.92L, Hemoglobin 10.8L, Hematocrit 33.8L , Mean Corpuscular Volume 86.3, Mean Corpuscular Hemoglobin 27.7, Mean Corpuscular Hemoglobin Concent 32.1, Red Cell Distribution Width 14.5, Platelet Count 335, Neutrophils (%) (Auto) 75.0H, Lymphocytes (%) (Auto) 15.0L, Monocytes (%) (Auto) 4.6, Eosinophils (%) (Auto) 3.2H, Basophils (%) (Auto) 0.6 , Neutrophils # (Auto) 4.1, Lymphocytes # (Auto) 0.8L, Monocytes # (Auto) 0.3, Eosinophils # (Auto) 0.2, Basophils # (Auto) 0.0, Large Unclassified Cells % 1.6 , Large Unclassified Cells # 0.1, Anion Gap 9, Glomerular Filtration Rate > 60.0 , Blood Urea Nitrogen 17, Creatinine 0.85, Sodium Level 141, Potassium Level 3.8 , Chloride Level 106, Carbon Dioxide Level 26, Calcium Level 8.9, Aspartate Amino Transf (AST/SGOT) 10L, Alanine Aminotransferase (ALT/SGPT) 26, Alkaline Phosphatase 100, Total Bilirubin 0.2, Total Protein 6.5, Albumin 3.3, Magnesium Level 2.4, Albumin/Globulin Ratio 1.03 CBC/BMP Laboratory Tests 05/17/17 04:34 Red Blood Count 3.92 L, Mean Corpuscular Volume 86.3, Mean Corpuscular Hemoglobin 27.7, Mean Corpuscular Hemoglobin Concent 32.1, Red Cell Distribution Width 14.5, Neutrophils (%) (Auto) 75.0 H, Lymphocytes (%) (Auto) 15.0 L, Monocytes (%) (Auto) 4.6, Eosinophils (%) (Auto) 3.2 H, Basophils (%) ( Auto) 0.6, Neutrophils # (Auto) 4.1, Lymphocytes # (Auto) 0.8 L, Monocytes # ( Auto) 0.3, Eosinophils # (Auto) 0.2, Basophils # (Auto) 0.0, Calcium Level 8.9, Aspartate Amino Transf (AST/SGOT) 10 L, Alanine Aminotransferase (ALT/SGPT) 26, Alkaline Phosphatase 100, Total Bilirubin 0.2, Total Protein 6.5, Albumin 3.3 GILMA ENRIQUEZ MD May 17, 2017 11:03
[2017-05-17] MEDS ORDERED: INFLUENZA QUADRIVALENT PF VACCINE 0.5ML SYRINGE (90686) IM PRN (11:05)
[2017-05-17 11:43] VITALS: BP 124/78
[2017-05-17] MEDS ORDERED: OMEP40CA2 PO (13:15)
[2017-07-15] MEDS ORDERED: PREV1CAP PO (15:06)
[2017-07-15] MEDS ORDERED: [UNRECOGNIZED DRUG - REMARK] PO (15:06)
[2017-07-15] MEDS ORDERED: BENA25CA4 PO (15:06)
[2017-07-21] MEDS ORDERED: DOXY-278 PO (10:39)
[2017-07-21] MEDS ORDERED: REGL5TAB2 PO (13:45)
[2017-07-21] MEDS ORDERED: COLA100C5 PO (13:47)
== END 2017-05-17 12:15 | disposition home or self-care (01) ==
LOC: M ED 15:54 → M ED INP 15:55 → M PCU 05-15 05:15
PROVIDERS: ADMIT Internal Medicine; ATTEND Internal Medicine Nephrology
DX: R07.9 Chest pain, unspecified (principal); G40.909 Epilepsy, unspecified, not intractable, without status epilepticus; R06.02 Shortness of breath; I34.0 Nonrheumatic mitral (valve) insufficiency; I34.1 Nonrheumatic mitral (valve) prolapse; J45.909 Unspecified asthma, uncomplicated; G47.33 Obstructive sleep apnea (adult) (pediatric); I10 Essential (primary) hypertension; E11.9 Type 2 diabetes mellitus without complications; E78.5 Hyperlipidemia, unspecified; M06.9 Rheumatoid arthritis, unspecified; F41.9 Anxiety disorder, unspecified; F32.9 Major depressive disorder, single episode, unspecified; G43.709 Chronic migraine without aura, not intractable, without status migrainosus; M79.7 Fibromyalgia; E06.3 Autoimmune thyroiditis; R51 Headache; R11.2 Nausea with vomiting, unspecified; R94.31 Abnormal electrocardiogram [ECG] [EKG]; K21.9 Gastro-esophageal reflux disease without esophagitis; Z79.899 Other long term (current) drug therapy; Z79.82 Long term (current) use of aspirin; Z79.51 Long term (current) use of inhaled steroids; Z91.040 Latex allergy status; Z88.5 Allergy status to narcotic agent; Z88.8 Allergy status to other drugs, medicaments and biological substances; Z88.2 Allergy status to sulfonamides; Z88.1 Allergy status to other antibiotic agents; Z23 Encounter for immunization
CPT/HCPCS: 36415; 71020; 80048; 80053; 80076; 82550; 82553; 83036; 83690; 83735; 83880; 85025; 85379; 85610; 85730; 90471; 90686; 93005; 93041; 94760; 96372; 96374; 96375; 96376; 99285; C9113; J1650; J1885; J2405

== ENCOUNTER 2017-07-30 11:33 | Day surgery (SDC) | payer BC ==
[~2017-07-30] VITALS: Ht 172.7 cm; Wt 121.6 kg
[~2017-07-30 11:33] MED LIST changes: +BENA25CA4 PO; +BENT10CA PO; +CHLO125TA PO; +CLON1TAB PO; +DEXI30CA2 PO; +DOXY-278 PO; +FLUO10CA8 PO; +HYDR200T3 PO; +LIDO1OIN2 TOP; +LIDOCAINE 2% INJ 100 MG/5 ML SDV (FOR ANES.) As Ordered ONE; +META1TAB22 PO; +NITR4TASL SL; +OMEP40CA2 PO; +ONDA4TAB6 PO; +PRAM0.5T4 PO; +PROPOFOL 200 MG/20 ML VIAL As Ordered ONE; +REGL5TAB2 PO; +SING10TA32 PO; +VALS1TAB48 PO; +VERA300C PO; +ZOLP10TA2 PO; +[UNRECOGNIZED DRUG - REMARK] PO
[2017-07-30] MEDS: NS 1,000 ML IV ONE (11:45)
--- NOTE | 2017-07-30 13:18 | ROOR ---
Patient Name: Angelica Conley Procedure Date: 07/30/2017 1:06 PM Date of : 1960 Age: 56 Room: [facility] Gender: Female Note Status: Finalized Procedure: Upper GI endoscopy Indications: Heartburn, Gastroparesis, Nausea Providers: Anthony HENDERSON MD Referring MD: Lidia HARDIN DO Requesting Provider: Medicines: Monitored Anesthesia Care Complications: No immediate complications. Procedure: Pre-Anesthesia Assessment: - The heart rate, respiratory rate, oxygen saturations, blood pressure, adequacy of pulmonary ventilation, and response to care were monitored throughout the procedure. The Endoscope was introduced through the mouth, and advanced to the second part of duodenum. The upper GI endoscopy was accomplished without difficulty. The patient tolerated the procedure well. Findings: A medium-sized hiatal hernia was present. The esophagus was normal. The stomach was normal. The examined duodenum was normal. Impression: - Medium-sized hiatal hernia. - Normal esophagus. - Normal stomach. - Normal examined duodenum. - No specimens collected. Recommendation: - Continue present medications. - Gastroparesis diet: - Eat smaller, more frequent meals throughout the day. - Low fat diet. - Liquid/soft foods are tolerated better than solid foods. - Low fiber/well cooked vegetables are tolerated better than high fiber/fibrous foods/raw vegetables. - Avoid medications that inhibit gastric/intestinal motility such as narcotic medications. Anthony Henderson MD Anthony HENDERSON MD 07/30/2017 1:17:48 PM This report has been signed electronically. Number of Addenda: 0 Note Initiated On: 07/30/2017 1:06 PM Estimated Blood Loss: Estimated blood loss: none.
[2017-07-30] MEDS ORDERED: PROPOFOL 200 MG/20 ML VIAL As Ordered ONE (13:37)
--- NOTE | 2017-07-30 13:45 | ROOR ---
Patient Name: Angelica Conley Procedure Date: 07/30/2017 1:07 PM Date of : 1960 Age: 56 Room: [id number] Gender: Female Note Status: Finalized Procedure: Colonoscopy Indications: Change in bowel habits Providers: Anthony HENDERSON MD Referring MD: Lidia HARDIN DO Requesting Provider: Medicines: Monitored Anesthesia Care Complications: No immediate complications. Procedure: Pre-Anesthesia Assessment: - The heart rate, respiratory rate, oxygen saturations, blood pressure, adequacy of pulmonary ventilation, and response to care were monitored throughout the procedure. The Colonoscope was introduced through the anus and advanced to the cecum, identified by appendiceal orifice and ileocecal valve. The colonoscopy was performed with difficulty due to inadequate bowel prep. Successful completion of the procedure was aided by lavage. The patient tolerated the procedure well. The quality of the bowel preparation was unsatisfactory. Findings: The perianal and digital rectal examinations were normal. (Colon Prep was POOR, Inadequate Visualisation) Two sessile polyps were found in the sigmoid colon. The polyps were 4 to 5 mm in size. These polyps were removed with a cold snare. Resection and retrieval were complete. Impression: - Preparation of the colon was unsatisfactory. Visualisation was limited. - Two 4 to 5 mm polyps in the sigmoid colon, removed with a cold snare. Resected and retrieved. Recommendation: - Repeat colonoscopy at the next available appointment because the bowel preparation was poor. Anthony Henderson MD Anthony HENDERSON MD 07/30/2017 1:45:00 PM This report has been signed electronically. Number of Addenda: 0 Note Initiated On: 07/30/2017 1:07 PM Estimated Blood Loss: Estimated blood loss: none.
[2017-07-30 14:10] VITALS: BP 152/93
== END 2017-07-30 14:25 | disposition home or self-care (01) ==
LOC: M OPP 11:33
PROVIDERS: ATTEND Internal Medicine Gastroenterology
DX: R19.4 Change in bowel habit (principal); D12.5 Benign neoplasm of sigmoid colon; R12 Heartburn; K31.84 Gastroparesis; R11.0 Nausea; K21.9 Gastro-esophageal reflux disease without esophagitis; K44.9 Diaphragmatic hernia without obstruction or gangrene; R00.8 Other abnormalities of heart beat; R07.89 Other chest pain; I25.2 Old myocardial infarction; I10 Essential (primary) hypertension; E78.5 Hyperlipidemia, unspecified; I34.1 Nonrheumatic mitral (valve) prolapse; K58.9 Irritable bowel syndrome, unspecified; R23.3 Spontaneous ecchymoses; M48.00 Spinal stenosis, site unspecified; E55.9 Vitamin D deficiency, unspecified; E11.42 Type 2 diabetes mellitus with diabetic polyneuropathy; Z86.14 Personal history of Methicillin resistant Staphylococcus aureus infection; M19.90 Unspecified osteoarthritis, unspecified site; M54.9 Dorsalgia, unspecified; M79.7 Fibromyalgia; M25.60 Stiffness of unspecified joint, not elsewhere classified; R21 Rash and other nonspecific skin eruption; F41.9 Anxiety disorder, unspecified; F32.9 Major depressive disorder, single episode, unspecified; G43.909 Migraine, unspecified, not intractable, without status migrainosus; R56.9 Unspecified convulsions; Z78.0 Asymptomatic menopausal state; Z92.3 Personal history of irradiation; J45.909 Unspecified asthma, uncomplicated; G47.30 Sleep apnea, unspecified; R06.83 Snoring; G47.00 Insomnia, unspecified; F12.20 Cannabis dependence, uncomplicated; Z88.5 Allergy status to narcotic agent; Z88.8 Allergy status to other drugs, medicaments and biological substances; Z88.2 Allergy status to sulfonamides; Z91.040 Latex allergy status; Z79.82 Long term (current) use of aspirin; Z79.899 Other long term (current) drug therapy

== ENCOUNTER → 2017-11-19 | Outpatient (CLI) | payer BC | LOC: M ADAMS 15:21 | DX: R06.02 Shortness of breath (principal) ==

== ENCOUNTER → 2018-01-28 | Outpatient (REF) | payer BC ==
[2018-01-28 13:03] LABS: MAGNESIUM LEVEL 2.2 MG/DL (1.8-2.4)
== END ==
LOC: M LABNEURO 08:26
DX: R55 Syncope and collapse (principal); M62.830 Muscle spasm of back
CPT/HCPCS: 83735

== ENCOUNTER → 2018-01-28 | Outpatient (REF) | payer BC ==
[2018-01-28 12:46] LABS: BASO # 0.1 10^3/uL (0.0-0.2); BASO % 0.8 % (0.0-1.0); EOS # 0.3 10^3/uL (0.0-0.50); EOS % 5.6 % (0.0-3.0); HEMATOCRIT 32.8 % (36.0-47.0); HEMOGLOBIN 9.7 g/dl (12.0-15.5); IMMATURE GRANULOCYTE % 0.3 % (0-3.0); LYMPH # 1.4 10^3/uL (1.5-4.5); LYMPH % 22.5 % (24.0-44.0); MEAN CORPUSCULAR HEMOGLOBIN 22.4 pg (27.0-33.0); MEAN CORPUSCULAR HGB CONC 29.6 g/dl (32.0-36.5); MEAN CORPUSCULAR VOLUME 75.8 fl (80.0-96.0); MONO # 0.4 10^3/uL (0.0-0.8); MONO % 6.4 % (0.0-5.0); NEUTROPHILS # 3.9 10^3/uL (1.8-7.7); NEUTROPHILS % 64.4 % (36.0-66.0); PLATELET COUNT, AUTOMATED 462 10^3/uL (150-450); RED BLOOD COUNT 4.33 10^6/uL (4.00-5.40); RED CELL DISTRIBUTION WIDTH 18.2 % (11.5-14.5); WHITE BLOOD COUNT 6.1 10^3/uL (4.0-10.0)
[2018-01-28 13:18] LABS: ALBUMIN 3.7 GM/DL (3.2-5.2); ALBUMIN/GLOBULIN RATIO 1.16 (1.00-1.93); ALKALINE PHOSPHATASE 124 U/L (45-117); ALT/SGPT 26 U/L (12-78); ANION GAP 10 MEQ/L (8-16); AST/SGOT 12 U/L (7-37); BILIRUBIN,TOTAL 0.3 MG/DL (0.2-1.0); BLOOD UREA NITROGEN 18 MG/DL (7-18); CALCIUM LEVEL 8.8 MG/DL (8.5-10.1); CARBON DIOXIDE LEVEL 24 MEQ/L (21-32); CHLORIDE LEVEL 108 MEQ/L (98-107); CHOLESTEROL LEVEL 200 MG/DL (<200); CREATININE FOR GFR 0.79 MG/DL (0.55-1.30); FREE T4 0.99 NG/DL (0.76-1.46); GLOMERULAR FILTRATION RATE > 60.0 (>51); GLUCOSE, FASTING 113 MG/DL (70-100); HDL CHOLESTEROL 66 MG/DL (>40); LDL CHOLESTEROL 111.8 MG/DL (<100); NON-HDL-C 134 MG/DL; POTASSIUM SERUM 3.9 MEQ/L (3.5-5.1); SODIUM LEVEL 142 MEQ/L (136-145); TOTAL PROTEIN 6.9 GM/DL (6.4-8.2); TRIGLYCERIDES LEVEL 111 MG/DL (<150)
[2018-01-28 13:25] LABS: ESTIMATED AVERAGE GLUCOSE 120 MG/DL (60-110); HEMOGLOBIN A1c 5.8 %
== END ==
LOC: M LABNEURO 08:22
DX: E03.9 Hypothyroidism, unspecified (principal); K21.9 Gastro-esophageal reflux disease without esophagitis; I10 Essential (primary) hypertension; R73.01 Impaired fasting glucose
CPT/HCPCS: 84443

== ENCOUNTER → 2018-02-03 | Outpatient (REF) | payer BC ==
[2018-02-03 19:12] LABS: FERRITIN 4 NG/ML (8-252); IRON (FE) 26 UG/DL (50-170); TOTAL IRON BINDING CAPACITY 434 UG/DL (250-450)
[2018-02-03 19:21] LABS: VITAMIN B12 LEVEL 210 PG/ML
== END ==
LOC: M LABNEURO 15:13
DX: D64.9 Anemia, unspecified (principal)
CPT/HCPCS: 82746

== ENCOUNTER 2018-03-11 11:12 | Day surgery (SDC) | payer BC ==
[2018-03-11] MEDS: NS 1,000 ML IV (11:45)
[2018-03-11] MEDS ORDERED: fentaNYL 100 MCG/2 ML INJECTION (J3010) As Ordered (12:45)
[2018-03-11] MEDS ORDERED: PROPOFOL 500 MG/50 ML VIAL As Ordered (13:06)
== END 2018-03-11 15:14 | disposition home or self-care (01) ==
LOC: M OPP 11:12
DX: D50.9 Iron deficiency anemia, unspecified (principal); K44.9 Diaphragmatic hernia without obstruction or gangrene; G47.30 Sleep apnea, unspecified; I11.0 Hypertensive heart disease with heart failure; E78.00 Pure hypercholesterolemia, unspecified; K21.9 Gastro-esophageal reflux disease without esophagitis; F41.9 Anxiety disorder, unspecified; G43.909 Migraine, unspecified, not intractable, without status migrainosus; I20.9 Angina pectoris, unspecified; I50.9 Heart failure, unspecified; I25.2 Old myocardial infarction; J45.909 Unspecified asthma, uncomplicated; R56.9 Unspecified convulsions; Z79.899 Other long term (current) drug therapy; Z86.14 Personal history of Methicillin resistant Staphylococcus aureus infection; Z90.49 Acquired absence of other specified parts of digestive tract; Z98.51 Tubal ligation status
CPT/HCPCS: 45378

== ENCOUNTER → 2018-04-25 | Outpatient (REF) | payer BC ==
[2018-04-27 14:15] LABS: HPV HYBRID CAPTURE II Negative (Negative)
== END ==
LOC: M SFHCWAGY 11:12
DX: Z12.4 Encounter for screening for malignant neoplasm of cervix (principal)
CPT/HCPCS: G0123

== ENCOUNTER → 2018-04-25 | Outpatient (CLI) | payer BC | LOC: M WHC 11:07 | DX: Z12.31 Encounter for screening mammogram for malignant neoplasm of breast (principal) | CPT/HCPCS: 77067 ==

== ENCOUNTER → 2018-05-27 | Outpatient (CLI) | payer BC ==
[2018-05-27 15:18] LABS: BASO # 0.1 10^3/uL (0.0-0.2); BASO % 0.9 % (0.0-1.0); EOS # 0.2 10^3/uL (0.0-0.50); EOS % 3.5 % (0.0-3.0); HEMATOCRIT 48.2 % (36.0-47.0); HEMOGLOBIN 15.9 g/dl (12.0-15.5); LYMPH # 1.8 10^3/uL (1.5-4.5); LYMPH % 33.2 % (24.0-44.0); MEAN CORPUSCULAR HEMOGLOBIN 29.5 pg (27.0-33.0); MEAN CORPUSCULAR VOLUME 89.4 fl (80.0-96.0); MONO # 0.4 10^3/uL (0.0-0.8); MONO % 7.5 % (0.0-5.0); NEUTROPHILS % 54.9 % (36.0-66.0); PLATELET COUNT, AUTOMATED 283 10^3/uL (150-450); RED BLOOD COUNT 5.39 10^6/uL (4.00-5.40); WHITE BLOOD COUNT 5.5 10^3/uL (4.0-10.0)
[2018-05-27 15:43] LABS: BLOOD UREA NITROGEN 13 MG/DL (7-18)
[2018-05-27 15:43] LABS: CREATININE FOR GFR 0.82 MG/DL (0.55-1.30); GLOMERULAR FILTRATION RATE > 60.0 (>51)
== END ==
LOC: M LAB 15:02
DX: D50.9 Iron deficiency anemia, unspecified (principal)
CPT/HCPCS: 82565

== ENCOUNTER → 2018-06-02 | Outpatient (CLI) | payer BC ==
[~2018-06-02] MED LIST changes: -ALBU17IN2 PO; -ASPI-161 PO; -BENA25CA2 PO; -BENA25CA4 PO; -BENT10CA PO; -BREO1INH PO; -CHLO125TA PO; -CLON1TAB PO; -COLA100C5 PO; -CYMB60CA3 PO; -DEXI30CA2 PO; -DICY20TA11 PO; -DOXY-278 PO; -FISH1000 PO; -FLON1SPR; -FLUO10CA8 PO; +GLUCAGON FOR INJ 1 MG VIAL (J1610) As Ordered; -HYDR200T3 PO; +ISOVUE-370 76% 100ML VIAL (Q9967) As Ordered; -KEPP750T3 PO; -KLON1TAB PO; -LIDO1OIN2 TOP; -LIDOCAINE 2% INJ 100 MG/5 ML SDV (FOR ANES.) As Ordered ONE; -LISI40TAB PO; -MAGN500C PO; -MAXA10TA14 PO; -MELO15TA4; -META1TAB22 PO; -MOBI4TAB PO; -MONT10TA2; -NITR4TASL SL; -NORC10TA21 PO; -OMEP40CA2 PO; -ONDA4TAB6 PO; -PHEN1SUP7 PR; -PRAM0.5T4; -PRAM0.5T4 PO; -PRAV10TA4 PO; -PREV1CAP PO; -PROPOFOL 200 MG/20 ML VIAL As Ordered ONE; -REGL5TAB2 PO; -ROPI1TAB PO; -SING10TA32 PO; -VALS1TAB48; -VALS1TAB48 PO; -VERA120T2 PO; -VERA300C; -VERA300C PO; -VITA200016 PO; +VoLumen 0.1% SUSPENSION 450ML BOTTLE As Ordered; -ZANA4CAP PO; -ZOLP10TA2 PO; -ZONI100C2 PO; -[UNRECOGNIZED DRUG - REMARK] PO
== END ==
LOC: M RAD 09:30
DX: D50.9 Iron deficiency anemia, unspecified (principal); K44.9 Diaphragmatic hernia without obstruction or gangrene
CPT/HCPCS: Q9967

== ENCOUNTER → 2018-06-24 | Outpatient (REF) | payer BC ==
[2018-06-24 15:09] LABS: ANION GAP 8 MEQ/L (8-16); BLOOD UREA NITROGEN 16 MG/DL (7-18); CALCIUM LEVEL 9.1 MG/DL (8.5-10.1); CARBON DIOXIDE LEVEL 27 MEQ/L (21-32); CHLORIDE LEVEL 108 MEQ/L (98-107); CREATININE FOR GFR 0.68 MG/DL (0.55-1.30); GLOMERULAR FILTRATION RATE > 60.0 (>51); GLUCOSE, FASTING 77 MG/DL (70-100); PHOSPHORUS LEVEL 3.6 MG/DL (2.5-4.9); POTASSIUM SERUM 4.1 MEQ/L (3.5-5.1); SODIUM LEVEL 143 MEQ/L (136-145)
== END ==
LOC: M LABDRAW1 12:22
DX: R06.02 Shortness of breath (principal)
CPT/HCPCS: 80069

== ENCOUNTER 2018-06-30 14:16 | Emergency (ER) | payer BC ==
[2018-06-30] MEDS: ONDANSETRON 4MG/2ML VIAL (J2405) IV (15:00)
[2018-06-30] MEDS: levETIRAcetam INJection 1,000 MG in D5W 100 ML IV (15:00)
[2018-06-30] MEDS: NS 1,000 ML IV (15:00)
[2018-06-30 15:58] LABS: ANION GAP 6 MEQ/L (8-16); BLOOD UREA NITROGEN 19 MG/DL (7-18); CARBON DIOXIDE LEVEL 30 MEQ/L (21-32); CHLORIDE LEVEL 105 MEQ/L (98-107); CREATININE FOR GFR 0.77 MG/DL (0.55-1.30); GLOMERULAR FILTRATION RATE > 60.0 (>51); GLUCOSE, FASTING 95 MG/DL (70-100); SODIUM LEVEL 141 MEQ/L (136-145)
[2018-06-30] MEDS: NS 500 ML IV (16:45)
[2018-06-30] MEDS: diphenhydrAMINE INJ 50MG/ML VIAL (J1200) IV (16:49)
[2018-06-30] MEDS: KETOROLAC 30 MG/ML VIAL (J1885) IV (16:50)
[2018-07-03 14:07] LABS: LEVETIRACETAM (KEPPRA) 2.5 ug/mL (10.0-40.0)
== END 2018-06-30 18:00 | disposition home or self-care (01) ==
LOC: M ED 14:16
DX: R11.2 Nausea with vomiting, unspecified (principal); E86.0 Dehydration; R51 Headache; I10 Essential (primary) hypertension; I25.2 Old myocardial infarction; K58.9 Irritable bowel syndrome, unspecified; Z90.49 Acquired absence of other specified parts of digestive tract; Z88.5 Allergy status to narcotic agent; Z88.8 Allergy status to other drugs, medicaments and biological substances; Z88.2 Allergy status to sulfonamides; Z88.1 Allergy status to other antibiotic agents; Z91.040 Latex allergy status
CPT/HCPCS: J1200

== ENCOUNTER → 2018-08-29 | Outpatient (CLI) | payer BC ==
[~2018-08-29] MED LIST changes: +ALBU17IN2 INH; +ALBU17IN2 PO; +ASPI-161 PO; +BENA25CA2 PO; +BENA25CA4 PO; +BENT10CA PO; +BREO1INH PO; +BUME1TAB27 PO; +CHLO125TA PO; +CLON1TAB8 PO; +COLA100C5 PO; +CYMB60CA3 PO; +DEXI30CA2 PO; +DICY20TA11 PO; +DOXY-350 PO; +DOXY50CA4 PO; +FERR325T3 PO; +FISH1000 PO; +FLON1SPR; +FLUO10CA8 PO; -GLUCAGON FOR INJ 1 MG VIAL (J1610) As Ordered; +HYDR200T3 PO; +HYDR5OI TOP; -ISOVUE-370 76% 100ML VIAL (Q9967) As Ordered; +KEPP750T3 PO; +KLON1TAB PO; +LEVO50TA5 PO; +LIDO1OIN2 TOP; +LISI40TAB PO; +MAGN500C PO; +MAXA10TA14 PO; +MELO15TA28; +META1TAB22 PO; +MOBI4TAB PO; +MONT10TA2; +NITR4TASL SL; +NORC10TA21 PO; +OMEP40CA2 PO; +ONDA4TAB6 PO; +PHEN1SUP7 PR; +PRAM0.5T7; +PRAM0.5T7 PO; +PRAV10TA4 PO; +PREV1CAP PO; +PROT0.1O TOP; +PROZ10CA7 PO; +REGL5TAB2 PO; +ROPI1TAB PO; +SING10TA32 PO; +UREA39LO TOP; +VALS1TAB48; +VALS1TAB48 PO; +VERA120T2 PO; +VERA300C; +VERA300C PO; +VITA100072 PO; +VITA100T56 PO; +VITA200016 PO; -VoLumen 0.1% SUSPENSION 450ML BOTTLE As Ordered; +ZANA4CAP PO; +ZOFR4TAB14 PO; +ZOLP10TA2 PO; +ZONI100C2 PO; +ZYRT10CA PO; +[UNRECOGNIZED DRUG - REMARK] PO; +medical marijuana
[2018-08-29 12:27] LABS: C REACTIVE PROTEIN QUANTITATIV 1.03 MG/DL (0.00-0.30)
[2018-08-30 06:41] LABS: RHEUMATOID FACTOR QUANT < 10.0 IU/ML (<15.0)
[2018-08-31 00:06] LABS: ANA (HEP2) Negative (.); CYCLIC CITRULLINATED PEPTIDE 5 units (0-19)
== END ==
LOC: M LAB 11:26
PROVIDERS: ATTEND Internal Medicine Rheumatology
DX: R76.8 Other specified abnormal immunological findings in serum (principal)

== ENCOUNTER → 2018-09-26 | Outpatient (CLI) | payer BC ==
[2018-09-26 13:38] LABS: HEMATOCRIT 46.8 % (36.0-47.0); HEMOGLOBIN 15.7 g/dl (12.0-15.5); MEAN CORPUSCULAR HEMOGLOBIN 31.7 pg (27.0-33.0); MEAN CORPUSCULAR HGB CONC 33.5 g/dl (32.0-36.5); MEAN CORPUSCULAR VOLUME 94.4 fl (80.0-96.0); PLATELET COUNT, AUTOMATED 300 10^3/uL (150-450); RED BLOOD COUNT 4.96 10^6/uL (4.00-5.40); WHITE BLOOD COUNT 6.3 10^3/uL (4.0-10.0)
[2018-09-26 13:54] LABS: ALBUMIN 4.3 GM/DL (3.2-5.2); ALT/SGPT 28 U/L (12-78); BILIRUBIN,TOTAL 0.2 MG/DL (0.2-1.0); BLOOD UREA NITROGEN 20 MG/DL (7-18); CALCIUM LEVEL 9.3 MG/DL (8.5-10.1); CARBON DIOXIDE LEVEL 27 MEQ/L (21-32); CHLORIDE LEVEL 104 MEQ/L (98-107); GLOMERULAR FILTRATION RATE > 60.0 (>51); GLUCOSE, FASTING 104 MG/DL (70-100); POTASSIUM SERUM 4.4 MEQ/L (3.5-5.1); SODIUM LEVEL 140 MEQ/L (136-145); TOTAL PROTEIN 7.1 GM/DL (6.4-8.2)
== END ==
LOC: M SMT 08:12
PROVIDERS: ATTEND Physician Assistant
DX: R07.2 Precordial pain (principal)

== ENCOUNTER 2018-10-22 12:12 | Emergency (ER) | payer BC ==
[~2018-10-22] VITALS: Ht 172.7 cm; Wt 115.0 kg
[2018-10-22 13:58] LABS: BASO % 0.7 % (0.0-1.0); EOS # 0.2 10^3/uL (0.0-0.50); EOS % 3.8 % (0.0-3.0); HEMATOCRIT 47.2 % (36.0-47.0); HEMOGLOBIN 15.7 g/dl (12.0-15.5); LYMPH # 1.6 10^3/uL (1.5-4.5); MEAN CORPUSCULAR HEMOGLOBIN 31.2 pg (27.0-33.0); MEAN CORPUSCULAR HGB CONC 33.3 g/dl (32.0-36.5); MEAN CORPUSCULAR VOLUME 93.7 fl (80.0-96.0); MONO # 0.5 10^3/uL (0.0-0.8); MONO % 7.7 % (0.0-5.0); NEUTROPHILS # 3.5 10^3/uL (1.8-7.7); NEUTROPHILS % 59.5 % (36.0-66.0); PLATELET COUNT, AUTOMATED 293 10^3/uL (150-450); RED BLOOD COUNT 5.04 10^6/uL (4.00-5.40); WHITE BLOOD COUNT 5.9 10^3/uL (4.0-10.0)
[2018-10-22 14:01] LABS: INR 0.94; PROTHROMBIN TIME 12.7 SECONDS (12.1-14.4)
[2018-10-22 14:02] LABS: PARTIAL THROMBOPLASTIN TIME 31.5 SECONDS (25.4-37.6)
[2018-10-22 14:08] LABS: ALT/SGPT 29 U/L (12-78); BILIRUBIN,DIRECT 0.1 MG/DL (0.0-0.2); BILIRUBIN,TOTAL 0.4 MG/DL (0.2-1.0); BLOOD UREA NITROGEN 21 MG/DL (7-18); C REACTIVE PROTEIN QUANTITATIV 0.43 MG/DL (0.00-0.30); CALCIUM LEVEL 8.7 MG/DL (8.5-10.1); CARBON DIOXIDE LEVEL 26 MEQ/L (21-32); CHLORIDE LEVEL 107 MEQ/L (98-107); CK-MB VALUE MASS < 1.0 NG/ML (<3.6); CPK CREATINE PHOSPHOKINASE 37 U/L (26-192); CREATININE FOR GFR 0.72 MG/DL (0.55-1.30); GLOMERULAR FILTRATION RATE > 60.0 (>51); GLUCOSE, FASTING 107 MG/DL (70-100); NT-PRO BNP 31 PG/ML (<125); POTASSIUM SERUM 3.6 MEQ/L (3.5-5.1); SODIUM LEVEL 140 MEQ/L (136-145); TOTAL PROTEIN 7.1 GM/DL (6.4-8.2); TROPONIN I < 0.02 NG/ML (< 0.10)
--- NOTE | 2018-10-22 14:24 | REP ---
CHEST, SINGLE VIEW: There is no evidence of acute infiltrate. No pleural effusion is seen. The heart is normal in size. The mediastinal silhouette is unremarkable. The visualized osseous structures are intact. There appears to be a hiatal hernia. IMPRESSION: No acute pulmonary disease. There appears to be a hiatal hernia. Electronically Signed by Deejay Flores MD 10/22/2018 07:35 P
[2018-10-22 14:25] LABS: ERYTHROCYTE SEDIMENTATION RATE 5 mm/hr (0-30)
[2018-10-22] MEDS ORDERED: ONDANSETRON 4MG/2ML VIAL (J2405) IV ONE (14:30)
[2018-10-22] MEDS ORDERED: MORPHINE 2 MG/ML 1ML SYRINGE (J2270) IV PRN (14:30)
[2018-10-22] MEDS ORDERED: OMEP-221 PO (14:57)
[2018-10-22] MEDS ORDERED: LINZ290C (14:57)
[2018-10-22] MEDS ORDERED: REQU1TAB16 PO (14:57)
[2018-10-22] MEDS ORDERED: ISOVUE-370 76% 100ML VIAL (Q9967) As Ordered ONE (15:24)
[2018-10-22 16:32] LABS: CK-MB VALUE MASS < 1.0 NG/ML (<3.6); CPK CREATINE PHOSPHOKINASE 46 U/L (26-192); MB/CK RELATIVE INDEX 2.17 (< OR =4); TROPONIN I < 0.02 NG/ML (< 0.10)
[2018-10-22 17:45] VITALS: BP 129/73
[2018-10-22] MEDS ORDERED: OXYC1TAB23 PO (17:57)
[2018-10-22] MEDS ORDERED: PERCOCET 5MG/325MG TAB PO ONE (18:00)
--- NOTE | 2018-10-22 19:33 | ECGEPIP ---
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
--- NOTE | 2018-10-22 19:44 | ECGEPIP ---
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
--- NOTE | 2018-10-23 09:01 | REP ---
CT ANGIOGRAM OF THE CHEST: TECHNIQUE: Axial contrast enhanced images from the thoracic inlet to the upper abdomen using 100 mL Isovue 370 intravenous contrast material with multiplanar reformations. COMPARISON: 04/01/2017. There is no CT evidence of pulmonary embolism or thoracic aorta dissection. Heart is normal in size. There is no pleural or pericardial effusion. There is no adenopathy in the chest. There are three subpleural nodular densities in the region of the right middle lobe which are stable compared to the prior study. Another is seen in the superior segment of the right lower lobe. There are dependent atelectatic changes in the lungs. In the visualized portions of the upper abdomen a note is made of a cholecystectomy previously. Common bile duct is prominent, but similar to prior study. There is a moderate hiatal hernia. IMPRESSION: No CT evidence of pulmonary embolism or aortic dissection. No new lung abnormalities. Moderate to large hiatal hernia. Status post cholecystectomy. Electronically Signed by Deejay Flores MD 10/23/2018 06:51 P
== END 2018-10-22 18:14 | disposition home or self-care (01) ==
LOC: M ED 12:12
DX: R07.9 Chest pain, unspecified (principal); R06.02 Shortness of breath; E11.9 Type 2 diabetes mellitus without complications; I10 Essential (primary) hypertension; M79.7 Fibromyalgia; K21.9 Gastro-esophageal reflux disease without esophagitis; G43.909 Migraine, unspecified, not intractable, without status migrainosus; M48.00 Spinal stenosis, site unspecified; Z79.82 Long term (current) use of aspirin; Z79.899 Other long term (current) drug therapy; Z88.5 Allergy status to narcotic agent; Z88.8 Allergy status to other drugs, medicaments and biological substances; Z91.048 Other nonmedicinal substance allergy status; Z88.2 Allergy status to sulfonamides; Z91.040 Latex allergy status
CPT/HCPCS: 71045; 71275; 80048; 80076; 82550; 82553; 83880; 84484; 85025; 85610; 85652; 85730; 86140; 93005; 93041; 94760; 96374; 96375; 99285; J2270; J2405; Q9967

== ENCOUNTER → 2019-01-11 | Outpatient (REF) | payer BC ==
[~2019-01-11] MED LIST changes: +LINZ290C; +LISI40TA52 PO; -LISI40TAB PO; -NORC10TA21 PO; +NORC1TAB5 PO; +OMEP-221 PO; +OXYC1TAB23 PO; +REQU1TAB16 PO; -VALS1TAB48; -VALS1TAB48 PO; +VALS1TAB68; +VALS1TAB68 PO; +VITA100018 PO; -VITA100072 PO
[2019-01-11 18:53] LABS: BASO # 0.1 10^3/uL (0.0-0.2); BASO % 0.7 % (0.0-1.0); EOS # 0.1 10^3/uL (0.0-0.50); EOS % 1.6 % (0.0-3.0); HEMATOCRIT 43.5 % (36.0-47.0); HEMOGLOBIN 14.3 g/dl (12.0-15.5); LYMPH % 29.2 % (24.0-44.0); MEAN CORPUSCULAR HEMOGLOBIN 31.2 pg (27.0-33.0); MEAN CORPUSCULAR HGB CONC 32.9 g/dl (32.0-36.5); MONO # 0.5 10^3/uL (0.0-0.8); MONO % 7.7 % (0.0-5.0); NEUTROPHILS # 4.2 10^3/uL (1.8-7.7); NEUTROPHILS % 60.4 % (36.0-66.0); PLATELET COUNT, AUTOMATED 274 10^3/uL (150-450); RED BLOOD COUNT 4.58 10^6/uL (4.00-5.40); WHITE BLOOD COUNT 6.9 10^3/uL (4.0-10.0)
[2019-01-11 19:21] LABS: FREE T4 1.3 NG/DL (0.76-1.46); PERCENT SATURATION 31.9 % (13.2-45.0); THYROID STIMULATING HORMONE 1.2 uIU/ML (0.358-3.740)
== END ==
LOC: M WUC 16:48
PROVIDERS: ATTEND Physician Assistant
DX: E03.9 Hypothyroidism, unspecified (principal); E61.1 Iron deficiency

== ENCOUNTER 2019-03-23 13:28 | Emergency (ER) | payer BC ==
[~2019-03-23] VITALS: Ht 172.7 cm; Wt 118.6 kg
[~2019-03-23 13:28] MED LIST changes: -FLON1SPR; +FLON1SPR NARES; -LINZ290C; +LINZ290C PO
[2019-03-23 14:13] LABS: BASO % 0.6 % (0.0-1.0); EOS # 0.2 10^3/uL (0.0-0.50); EOS % 2.9 % (0.0-3.0); HEMOGLOBIN 13.6 g/dl (12.0-15.5); LYMPH # 1.7 10^3/uL (1.5-4.5); LYMPH % 27.4 % (24.0-44.0); MEAN CORPUSCULAR HEMOGLOBIN 31.9 pg (27.0-33.0); MEAN CORPUSCULAR HGB CONC 33.2 g/dl (32.0-36.5); MEAN CORPUSCULAR VOLUME 96.2 fl (80.0-96.0); MONO # 0.5 10^3/uL (0.0-0.8); MONO % 7.6 % (0.0-5.0); NEUTROPHILS # 3.9 10^3/uL (1.8-7.7); PLATELET COUNT, AUTOMATED 279 10^3/uL (150-450); RED BLOOD COUNT 4.26 10^6/uL (4.00-5.40); WHITE BLOOD COUNT 6.3 10^3/uL (4.0-10.0)
--- NOTE | 2019-03-23 14:26 | REP ---
CHEST, SINGLE VIEW: There is no evidence of acute infiltrate. No pleural effusion is seen. The heart is normal in size. The mediastinal silhouette is unremarkable. The visualized osseous structures are intact. IMPRESSION: No acute pulmonary disease. Electronically Signed by Deejay Flores MD 03/25/2019 10:20 A
[2019-03-23] MEDS ORDERED: ASPIRIN 325 MG TAB PO ONE (14:45)
[2019-03-23 14:48] LABS: BLOOD UREA NITROGEN 18 MG/DL (7-18); CALCIUM LEVEL 9.3 MG/DL (8.5-10.1); CARBON DIOXIDE LEVEL 30 MEQ/L (21-32); CHLORIDE LEVEL 105 MEQ/L (98-107); CK-MB VALUE MASS < 1.0 NG/ML (<3.6); CPK CREATINE PHOSPHOKINASE 46 U/L (26-192); CREATININE FOR GFR 0.88 MG/DL (0.55-1.30); GLOMERULAR FILTRATION RATE > 60.0 (>51); GLUCOSE, FASTING 99 MG/DL (70-100); MB/CK RELATIVE INDEX 2.17 (< OR =4); POTASSIUM SERUM 3.8 MEQ/L (3.5-5.1); SODIUM LEVEL 141 MEQ/L (136-145); TROPONIN I < 0.02 NG/ML (< 0.10)
[2019-03-23 15:10] LABS: ALBUMIN 3.6 GM/DL (3.2-5.2); ALT/SGPT 28 U/L (12-78); BILIRUBIN,DIRECT < 0.1 MG/DL (0.0-0.2); BILIRUBIN,TOTAL 0.3 MG/DL (0.2-1.0); TOTAL PROTEIN 6.6 GM/DL (6.4-8.2)
[2019-03-23 17:57] LABS: CK-MB VALUE MASS < 1.0 NG/ML (<3.6); CPK CREATINE PHOSPHOKINASE 42 U/L (26-192); MB/CK RELATIVE INDEX 2.38 (< OR =4); TROPONIN I < 0.02 NG/ML (< 0.10)
[2019-03-23] MEDS ORDERED: SUCR1TA PO (18:41)
[2019-03-23] MEDS ORDERED: KETOROLAC 30 MG/ML VIAL (J1885) IV ONE (18:45)
[2019-03-23 19:00] VITALS: BP 128/64
--- NOTE | 2019-03-23 19:31 | ECGEPIP ---
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
--- NOTE | 2019-03-23 19:31 | ECGEPIP ---
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
--- NOTE | 2019-03-23 19:36 | ECGEPIP ---
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
== END 2019-03-23 19:37 | disposition home or self-care (01) ==
LOC: M ED 13:28
DX: R07.89 Other chest pain (principal); G43.909 Migraine, unspecified, not intractable, without status migrainosus; E11.9 Type 2 diabetes mellitus without complications; I10 Essential (primary) hypertension; K21.9 Gastro-esophageal reflux disease without esophagitis; M48.00 Spinal stenosis, site unspecified; E56.9 Vitamin deficiency, unspecified; Z79.82 Long term (current) use of aspirin; Z79.899 Other long term (current) drug therapy; Z88.5 Allergy status to narcotic agent; Z88.2 Allergy status to sulfonamides; Z88.8 Allergy status to other drugs, medicaments and biological substances; Z91.040 Latex allergy status
CPT/HCPCS: 36415; 71045; 80048; 80076; 82550; 82553; 84443; 84484; 85025; 93005; 93041; 94760; 96374; 99285; J1885

== ENCOUNTER 2019-04-04 14:09 | Inpatient (IN) | payer BC ==
[~2019-04-04] VITALS: Ht 172.7 cm; Wt 120.5 kg
[~2019-04-04 14:09] MED LIST changes: +SUCR1TA PO
[2019-04-04 14:53] LABS: BASO % 0.5 % (0.0-1.0); EOS # 0.2 10^3/uL (0.0-0.50); EOS % 2.7 % (0.0-3.0); HEMOGLOBIN 15.2 g/dl (12.0-15.5); LYMPH # 1.2 10^3/uL (1.5-4.5); LYMPH % 14.2 % (24.0-44.0); MEAN CORPUSCULAR HEMOGLOBIN 32.1 pg (27.0-33.0); MONO # 0.6 10^3/uL (0.0-0.8); MONO % 7.4 % (0.0-5.0); NEUTROPHILS # 6.1 10^3/uL (1.8-7.7); NEUTROPHILS % 74.8 % (36.0-66.0); PLATELET COUNT, AUTOMATED 321 10^3/uL (150-450); RED BLOOD COUNT 4.74 10^6/uL (4.00-5.40); WHITE BLOOD COUNT 8.1 10^3/uL (4.0-10.0)
[2019-04-04 15:20] LABS: ALBUMIN 3.6 GM/DL (3.2-5.2); ALT/SGPT 122 U/L (12-78); BILIRUBIN,DIRECT 0.2 MG/DL (0.0-0.2); BILIRUBIN,TOTAL 0.5 MG/DL (0.2-1.0); BLOOD UREA NITROGEN 10 MG/DL (7-18); CALCIUM LEVEL 9.1 MG/DL (8.5-10.1); CARBON DIOXIDE LEVEL 26 MEQ/L (21-32); CHLORIDE LEVEL 104 MEQ/L (98-107); CREATININE FOR GFR 0.87 MG/DL (0.55-1.30); GLOMERULAR FILTRATION RATE > 60.0 (>51); GLUCOSE, FASTING 99 MG/DL (70-100); LIPASE 51 U/L (73-393); SODIUM LEVEL 139 MEQ/L (136-145); TOTAL PROTEIN 6.7 GM/DL (6.4-8.2)
[2019-04-04] MEDS ORDERED: NS 1,000 ML IV ONE (18:30)
[2019-04-04] MEDS ORDERED: ALBU17IN2 INH (19:06)
[2019-04-04] MEDS ORDERED: BUME1TAB3 PO ×2 (19:06)
[2019-04-04] MEDS ORDERED: SUCR1TA PO (19:14)
[2019-04-04] MEDS ORDERED: OXYC1TAB23 PO (19:14)
[2019-04-04] MEDS ORDERED: NITR4TASL SL (19:14)
[2019-04-04] MEDS ORDERED: DICY1CAP8 PO (19:14)
[2019-04-04] MEDS ORDERED: DOXY100T16 PO (19:14)
[2019-04-04] MEDS ORDERED: OMEP-218 PO (19:14)
[2019-04-04] MEDS ORDERED: ONDA8TAB8 PO (19:14)
[2019-04-04] MEDS ORDERED: ROPI1TAB PO (19:14)
[2019-04-04] MEDS ORDERED: KLOR20TA42 PO ×2 (19:16)
[2019-04-04] MEDS ORDERED: HYDR1CAP25 PO (19:16)
[2019-04-04] MEDS ORDERED: CARV12.5 PO (19:16)
[2019-04-04] MEDS ORDERED: CETI10TA4 PO (19:18)
[2019-04-04] MEDS ORDERED: MONT10TA2 PO (19:18)
[2019-04-04] MEDS ORDERED: IBUP80TA PO (19:18)
[2019-04-04] MEDS ORDERED: IRBE300T10 PO (19:18)
[2019-04-04] MEDS ORDERED: PRAV10TA4 PO (19:18)
[2019-04-04] MEDS ORDERED: MIRA0.5T PO (19:20)
[2019-04-04] MEDS ORDERED: ONDANSETRON 4MG/2ML VIAL (J2405) IV PRN (19:45)
[2019-04-04] MEDS ORDERED: hydrOXYzine 25 MG TAB PO PRN (19:45)
[2019-04-04] MEDS ORDERED: diphenhydrAMINE 25 MG CAP PO PRN (19:45)
[2019-04-04] MEDS ORDERED: IPRATROPIUM 0.5MG/ALBUTEROL 2.5MG INH SOL UD 3ML (DUONEB)(J7620) NEB PRN (19:45)
[2019-04-04] MEDS ORDERED: CETIRIZINE (ZyrTEC) 10 MG TAB PO PRN (19:45)
--- NOTE | 2019-04-04 19:50 | HPEPDOC ---
General Date of Admission Apr 04, 2019 at 18:56 Date of Service: Apr 04, 2019 Chief Complaint The patient is a 58-year-old female admitted with a reason for visit of Lower Gi Bleed. History of Present Illness 58-year-old female past medical history of hypertension, GERD, migraine headaches, diabetes, gastroparesis presented to ER with a chief complaint of intractable nausea/vomiting/diarrhea since 7 PM last night. The patient states that she had [employer] for dinner at 7 PM last night. She states that she ate chicken, coleslaw, and string beans. About 30 minutes after eating she states that she developed profuse nonbloody emesis with generalized abdominal pain. She also notes having significant loose nonbloody diarrheal bowel movements during this time. However, early this morning at 2 AM the patient states that she had a bright red bowel movement. Since then, she states that she has had several more. She came to the ER for further evaluation and management. In the ER, the patient had yet another bowel movement, but this time it was darker/black in color. Her hemoglobin was noted to be stable, as well as her blood pressure. A physical exam including a rectal exam done by the ER physician did not reveal any fissures or hemorrhoids. The patient will be admitted to the hospitalist service for further evaluation and management. Home Medications Scheduled Aspirin (Aspirin EC) 81 Mg Tab, 81 MG PO DAILY, (Reported) Bumetanide (Bumetanide) 1 Mg Tablet, 1 MG PO 4XWK, (Reported) WEDNESDAY/WEDNESDAY//WEDNESDAY Bumetanide (Bumetanide) 1 Mg Tablet, 2 MG PO 3XW, (Reported) WEDNESDAY/WEDNESDAY/WEDNESDAY Carvedilol (Carvedilol) 12.5 Mg Tablet, 12.5 MG PO BID, (Reported) Cholecalciferol (Vitamin D3) (Vitamin D3) 2,000 Unit Cap, 2,000 UNIT PO QHS, (Reported) Clonazepam (Klonopin) 1 Mg Tab, 1 MG PO QAM, (Reported) Clonazepam (Clonazepam) 1 Mg Tab, 2 MG PO QPM, (Reported) Cyanocobalamin (Vitamin B-12) (Vitamin B-12) 1,000 Mcg Tab, 1,000 MCG PO DAILY, (Reported) Doxycycline Monohydrate (Doxycycline Monohydrate) 100 Mg Tablet, 100 MG PO DAILY, (Reported) Fluticasone Propionate (Flonase Allergy Relief) 50 Mcg/Act Spr, 50 MCG NARES QHS, (Reported) Fluticasone/Vilanterol (Breo Ellipta 100-25 Mcg INH) 1 Inh Inh, 1 INH PO DAILY, (Reported) Irbesartan (Irbesartan) 300 Mg Tablet, 300 MG PO DAILY, (Reported) Levetiracetam (Keppra Xr) 750 Mg Tab, 7.5 MG PO BID, (Reported) Levothyroxine Sodium (Levothyroxine Sodium) 50 Mcg Tab, 50 MCG PO DAILY, (Reported) Linaclotide (Linzess) 290 Mcg Cap, 290 MCG PO DAILY, (Reported) Montelukast Sodium (Montelukast Sodium) 10 Mg Tablet, 10 MG PO QHS, (Reported) Omeprazole (Omeprazole) 20 Mg Capsule.dr, 20 MG PO BID, (Reported) Phytonadione (Vit K1) (Vitamin K) 100 Mcg Tab, 20 MCG PO DAILY, (Reported) Potassium Chloride (Klor-Con M20) 20 Meq Tab.er.prt, 20 MEQ PO 4XWK, (Reported) WEDNESDAY/WEDNESDAY/WEDNESDAY/WEDNESDAY Potassium Chloride (Klor-Con M20) 20 Meq Tab.er.prt, 40 MEQ PO 3XW, (Reported) WEDNESDAY/WEDNESDAY/WEDNESDAY Pramipexole Di-HCl (Mirapex) 0.5 Mg Tablet, 0.5 MG PO QHS, (Reported) Pravastatin Sodium (Pravastatin Sodium) 10 Mg Tab, 10 MG PO QHS, (Reported) Ropinirole HCl (Ropinirole HCl) 1 Mg Tablet, 1 MG PO QHS, (Reported) Sucralfate (Sucralfate) 1 Gm Tablet, 1 GM PO QID, (Reported) Verapamil Hcl (Verapamil ER Pm) 300 Mg Cap, 300 MG PO QHS, (Reported) Scheduled PRN Albuterol Sulfate (Proventil Hfa) 6.7 Gm Hfa.aer.ad, 2 PUFF INH Q4H PRN for SHORTNESS OF BREATH, (Reported) Cetirizine HCl (Cetirizine HCl) 10 Mg Tablet, 10 MG PO DAILY PRN for ALLERGIES, (Reported) Dicyclomine HCl (Dicyclomine HCl) 10 Mg Capsule, 10 MG PO Q6H PRN for ABDOMINAL PAIN , (Reported) PATIENT CAN TAKE 1 OR 2 CAPSULES Diphenhydramine HCl (Benadryl) 25 Mg Cap, 25 MG PO Q6HP PRN for ITCHING, (Reported) Hydroxyzine Pamoate (Hydroxyzine Pamoate) 25 Mg Capsule, 25 MG PO Q6H PRN for ANXIETY, (Reported) Ibuprofen (Ibuprofen) 800 Mg Tablet, 800 MG PO TID PRN for PAIN, (Reported) Metaxalone (Metaxalone) 800 Mg Tab, 800 MG PO TID PRN for MUSCLE SPASMS, (Reported) Nitroglycerin (Nitrostat) 0.4 Mg Tab.subl, 0.4 MG SL Q5MP PRN for CHEST PAIN , (Reported) Ondansetron (Ondansetron Odt) 8 Mg Tab.rapdis, 8 MG PO Q12H PRN for NAUSEA, (Reported) Oxycodone HCl/Acetaminophen (Oxycodone-Acetaminophen 5-325) 1 Each Tablet, 1 TAB PO QID PRN for PAIN, (Reported) THIS RX HAS NOT BEEN FILLED IN A LONG TIME. PATIENT STATES SHE HAD SOME FROM [facility]. Rizatriptan Benzoate (Maxalt) 10 Mg Tab, 10 MG PO DAILY PRN for MIGRAINE, (Reported) Miscellaneous Medications [medical marijuana] , (Reported) Allergies Coded Allergies: cyclobenzaprine (Verified Allergy, Severe, breathing difficulty, 03/23/19) codeine (Verified Allergy, Intermediate, rash, 03/23/19) latex (Verified Allergy, Intermediate, rash, 03/23/19) phenylephrine (Verified Allergy, Intermediate, rash, 03/23/19) sulfamethoxazole (Verified Allergy, Intermediate, rash, swelling, 03/23/19) trimethoprim (Verified Allergy, Intermediate, rash, swelling, 03/23/19) prednisone (Verified Allergy, Unknown, 03/23/19) Sulfa (Sulfonamide Antibiotics) (Verified Adverse Reaction, Intermediate, rash, itching, swelling, 03/23/19) furosemide (Verified Adverse Reaction, Unknown, low potassium, 03/23/19) hydrochlorothiazide (Verified Adverse Reaction, Unknown, low potassium, 03/23/19) morphine (Verified Adverse Reaction, Unknown, upset stomach, 03/23/19) Past Medical History Medical History As noted in HPI. Surgical History TONSILLECTOMY 1973 INGUINAL HERNIA REPAIR - L 1988 LUMPECTOMY, RIGHT BREAST 2004 TUBAL LIGATION 1988 CHOLECYSTECTOMY 1999 KNEE SURGERY X 1993, 1995, 1997, 1999 ROTATOR CUFF TEAR REPAIR-RIGHT SHOULDER 2009 ENDOMETRIAL ABLATION 1998 RIGHT KNEE ARTHROSCOPY 12/18/11 COLONOSCOPY & EGD 2013 COLONOSCOPY 02/2018 Social History * Smoker: Denies Alcohol: Denies Drugs: denies Review of Systems Other systems 10 point review of systems negative unless otherwise specified in HPI. Physical Examination General Exam: Positive: Alert, Cooperative, No Acute Distress, Other (morbidly obese) ENT Exam: Positive: Atraumatic; Negative: Mucous membr. moist/pink (dry mucous membranes) Neck Exam: Negative: JVD Chest Exam: Positive: Clear to auscultation, Normal air movement Heart Exam: Positive: Rate Normal, Normal S1, Normal S2 Abdomen Exam: Positive: Soft, Tenderness (mild tenderness to deep palpation in the lower quadrants bilaterally. No rebound tenderness, guarding, or rigidity noted.) Extremity Exam: Negative: Tenderness, Swelling Neuro Exam: Positive: Normal Speech Psych Exam: Positive: Mental status NL, Mood NL, Oriented x 3 Vital Signs Vital Signs Date Time Temp Pulse Resp B/P (MAP) Pulse Ox O2 Delivery O2 Flow Rate FiO2 04/04/19 19:06 98.6 88 16 135/66 (89) 97 Room Air Laboratory Data Labs 24H Laboratory Tests 2 04/04/19 14:41: Immature Granulocyte % (Auto) 0.4, White Blood Count 8.1, Red Blood Count 4.74, Hemoglobin 15.2, Hematocrit 46.0, Mean Corpuscular Volume 97.0H, Mean Corpuscular Hemoglobin 32.1, Mean Corpuscular Hemoglobin Concent 33.0, Red Cell Distribution Width 12.2, Platelet Count 321, Neutrophils (%) (Auto) 74.8H, Lymphocytes (%) (Auto) 14.2L, Monocytes (%) (Auto) 7.4H, Eosinophils (%) (Auto) 2.7, Basophils (%) (Auto) 0.5, Neutrophils # (Auto) 6.1, Lymphocytes # (Auto) 1.2L, Monocytes # (Auto) 0.6, Eosinophils # (Auto) 0.2, Basophils # (Auto) 0.0, Nucleated Red Blood Cells % (auto) 0.0, Anion Gap 9, Glomerular Filtration Rate > 60.0, Calcium Level 9.1, Aspartate Amino Transf (AST/SGOT) 138H, Alanine Aminotransferase (ALT/SGPT) 122H, Alkaline Phosphatase 134H, Total Bilirubin 0.5, Direct Bilirubin 0.2, Total Protein 6.7, Albumin 3.6, Albumin/Globulin Ratio 1.16, Lipase 51L CBC/BMP Laboratory Tests 04/04/19 14:41 Red Blood Count 4.74, Mean Corpuscular Volume 97.0 H, Mean Corpuscular Hemoglobin 32.1, Mean Corpuscular Hemoglobin Concent 33.0, Red Cell Distribution Width 12.2, Neutrophils (%) (Auto) 74.8 H, Lymphocytes (%) (Auto) 14.2 L, Monocytes (%) (Auto) 7.4 H, Eosinophils (%) (Auto) 2.7, Basophils (%) (Auto) 0.5, Neutrophils # (Auto) 6.1, Lymphocytes # (Auto) 1.2 L, Monocytes # (Auto) 0.6, Eosinophils # (Auto) 0.2, Basophils # (Auto) 0.0 Microbiology Microbiology 04/04/19 Gastrointestinal Tract Panel (PCR) - Final, Complete Plan / VTE VTE Prophylaxis Ordered?: Yes Plan Plan GI Bleed possibly 2/2 Food Poisoning Patient not on AC at home Hgb and B/P Stable in the ER The patient's stool appears to be darkening in color which likely suggests a resolution of the bleed Of note, patient had a colonoscopy done recently in May 2018 for workup of anemia and it was found to be normal. An EGD was done in February 2018 and also did not reveal any acute findings. At this time, we will keep the patient nothing by mouth and IV fluid hydration has been ordered We will follow-up with a CT scan of the abdomen/pelvis Serial H&H's will be monitored If the patient's hemoglobin drops significantly, or she continues to have GI bleeding we will consult gastroenterology for further evaluation. Otherwise, if she remains stable and is over this acute illness she could follow-up as an outpatient for further investigation. Elevated LFTs Possibly secondary to underlying foodborne illness We will follow-up with a CT scan of the abdomen/pelvis Acute Hepatitis panel ordered Liver ultrasound in the a.m. We will repeat LFTs in the a.m. DVT Prophylaxis PALMERs/NICOLAS Yeh MD Apr 04, 2019 19:50
[2019-04-04] MEDS ORDERED: ISOVUE-370 76% 100ML VIAL (Q9967) As Ordered ONE (20:14)
[2019-04-04 20:47] VITALS: BP 174/89
[2019-04-04 20:51] VITALS: BP 152/88
[2019-04-04 21:08] LABS: HEMATOCRIT 44.8 % (36.0-47.0); HEMOGLOBIN 14.8 g/dl (12.0-15.5)
--- NOTE | 2019-04-04 21:12 | REPVR ---
EXAM: CT Abdomen and Pelvis With Contrast EXAM DATE/TIME: 04/04/2019 8:26 PM CLINICAL HISTORY: 58 years old, female; Abdominal pain; Additional info: Abd pain TECHNIQUE: Imaging protocol: Axial computed tomography images of the abdomen and pelvis with intravenous contrast. Coronal and sagittal reformatted images were created and reviewed. Radiation optimization: All CT scans at this facility use at least one of these dose optimization techniques: automated exposure control; mA and/or kV adjustment per patient size (includes targeted exams where dose is matched to clinical indication); or iterative reconstruction. Contrast material: ISO 370; Contrast volume: 100 ml; Contrast route: IV; COMPARISON: CT ABD PELVIS W/O CONTRAST 07/21/2017 1:01 PM FINDINGS: Lungs: No suspicious mass or airspace process in the visualized lung bases. Mediastinum: Hiatal hernia measuring 8 cm is present. Liver: Liver appears normal with no focal abnormality. Gallbladder and bile ducts: Prominent central bile ducts, likely postcholecystectomy capacitance effect. Pancreas: Pancreas appears normal. No focal mass or peripancreatic inflammation. Spleen: Spleen appears homogeneous without focal mass. Adrenals: Adrenal glands are normal in appearance. Kidneys and ureters: Kidneys appear normal, with no stone, solid mass or hydronephrosis. Stomach and bowel: No evidence of small bowel obstruction. Mural edema and pericolonic stranding suggests inflammatory or infectious colitis, involving the splenic flexure through the sigmoid. Appendix: Appendix is not seen. No RLQ inflammation to suggest appendicitis. Intraperitoneal space: No pneumoperitoneum. No abnormal pelvic mass. Vasculature: Main portal and splenic veins enhance normally. Atherosclerotic change present in the aorta, without aneurysm. Lymph nodes: No enlarged lymph nodes. Bladder: Bladder appears normal. Reproductive: Unremarkable as visualized. Bones/joints: Degenerative changes are seen in the lumbar spine with disc height loss, endplate osteophytes and hypertrophic facet arthropathy. Soft tissues: Unremarkable. IMPRESSION: 1. Inflammatory or infectious colitis involving the descending and sigmoid colon. No obstruction or perforation 2. Hiatal hernia measuring 8 cm Electronically signed by: Erasmo Aguillon On 04/04/2019 21:12:16 PM
[2019-04-04] MEDS: NS 1,000 ML IV SCH (21:13)
[2019-04-04] MEDS: PANTOPRAZOLE 40MG INJ (PROTONIX) (C9113) IV SCH (21:44)
[2019-04-04] MEDS: FLUTICASONE PROP 0.05% NASAL SPRAY 16 GM (FLONASE) NARES SCH (21:44)
[2019-04-04] MEDS: levETIRAcetam **XR** 750MG TABLET (KEPPRA XR) PO SCH (21:45)
[2019-04-04] MEDS: rOPINIRole 1MG TAB PO SCH (21:45)
[2019-04-04] MEDS: SUCRALFATE 1 GM TAB PO SCH (21:45)
[2019-04-04] MEDS: PRAVASTATIN 10 MG TAB PO SCH (21:45)
[2019-04-04] MEDS ORDERED: SLF 3 ML SYR IV PRN (21:45)
[2019-04-04] MEDS: MONTELUKAST 10 MG TAB PO SCH (21:45)
[2019-04-04] MEDS: VITAMIN D 1,000 INTERNATIONAL UNITS TABLET PO SCH (21:45)
[2019-04-04] MEDS: clonazePAM 1 MG TAB PO SCH (21:46)
[2019-04-04] MEDS: SLF 3 ML SYR IV SCH (21:47)
[2019-04-04 23:59] VITALS: BP 134/78
[2019-04-05 02:54] LABS: HEMATOCRIT 40.4 % (36.0-47.0); HEMOGLOBIN 13.6 g/dl (12.0-15.5); MEAN CORPUSCULAR HEMOGLOBIN 31.6 pg (27.0-33.0); MEAN CORPUSCULAR HGB CONC 33.7 g/dl (32.0-36.5); PLATELET COUNT, AUTOMATED 249 10^3/uL (150-450); WHITE BLOOD COUNT 7.3 10^3/uL (4.0-10.0)
[2019-04-05 03:22] LABS: ALBUMIN 2.9 GM/DL (3.2-5.2); ALT/SGPT 81 U/L (12-78); BILIRUBIN,TOTAL 0.5 MG/DL (0.2-1.0); BLOOD UREA NITROGEN 9 MG/DL (7-18); CALCIUM LEVEL 8.1 MG/DL (8.5-10.1); CARBON DIOXIDE LEVEL 26 MEQ/L (21-32); CHLORIDE LEVEL 109 MEQ/L (98-107); CREATININE FOR GFR 0.71 MG/DL (0.55-1.30); GLOMERULAR FILTRATION RATE > 60.0 (>51); GLUCOSE, FASTING 112 MG/DL (70-100); MAGNESIUM LEVEL 2.2 MG/DL (1.8-2.4); POTASSIUM SERUM 3.5 MEQ/L (3.5-5.1); SODIUM LEVEL 142 MEQ/L (136-145); TOTAL PROTEIN 5.9 GM/DL (6.4-8.2)
[2019-04-05 04:00] VITALS: BP 136/80
[2019-04-05] MEDS: SLF 3 ML SYR IV SCH ×3 (05:24→21:08)
[2019-04-05] MEDS: LEVOTHYROXINE 50MCG TABLET (0.05MG) PO SCH (05:24)
[2019-04-05] MEDS: NS 1,000 ML IV SCH (05:24)
[2019-04-05] MEDS: ACETAMINOPHEN TAB 650MG DOSE (2X325MG) PO PRN ×3 (05:47→18:23)
[2019-04-05 08:00] VITALS: BP 121/56
[2019-04-05] MEDS: metroNIDAZOLE 500 MG in APPROPRIATE DILUENT 1 EA IV SCH ×3 (08:28→23:45)
[2019-04-05] MEDS: PANTOPRAZOLE 40MG INJ (PROTONIX) (C9113) IV SCH ×2 (08:33→21:07)
[2019-04-05] MEDS: clonazePAM 1 MG TAB PO SCH ×2 (08:48→21:06)
[2019-04-05] MEDS: levETIRAcetam **XR** 750MG TABLET (KEPPRA XR) PO SCH ×2 (08:48→21:05)
[2019-04-05] MEDS: SUCRALFATE 1 GM TAB PO SCH ×4 (08:48→21:04)
[2019-04-05] MEDS: CYANOCOBALAMIN 500 MCG TAB PO SCH (08:48)
--- NOTE | 2019-04-05 08:50 | REP ---
Abdominal right upper quadrant ultrasound for elevated liver function tests: Comparison is the abdomen and pelvis CT dated 04/04/2019. There is a cholecystectomy. There is dilatation of the common biliary duct measuring up to 14.8 mm transverse diameter, likely secondary to post cholecystectomy state. No intrahepatic biliary duct dilatation is identified. The hepatic parenchyma is diffusely echogenic compatible with hepato steatosis. There are no hepatic masses or cysts. The visualized hepatic parenchyma is unremarkable. Right kidney measures 9.7 x 5.3 x 4.4 cm. There is no calculus, hydronephrosis, cyst or solid mass. The right renal lower pole is obscured by bowel gas. Impression: Cholecystectomy. Common biliary dilatation, likely secondary to post cholecystectomy state. Hepato steatosis. The study is technically difficult because of body habitus and abdominal bowel gas. If there is clinical concern for biliary duct obstruction. Consider follow-up MRCP. Electronically Signed by Deejay Koroma MD 04/05/2019 08:41 A
[2019-04-05] MEDS: cefTRIAXone SOD 1 GM in D5W MINI-BAG PLUS 50 ML IV SCH (09:00)
[2019-04-05] MEDS: METAXALONE 800 MG TABLET PO PRN (09:23)
[2019-04-05 09:35] LABS: HEMATOCRIT 41.4 % (36.0-47.0); HEMOGLOBIN 13.6 g/dl (12.0-15.5)
[2019-04-05 10:50] LABS: HEPATITIS A ANTIBODY IGM NEGATIVE (NEGATIVE); HEPATITIS B CORE ANTIBODY IGM NEGATIVE (NEGATIVE)
[2019-04-05 10:51] LABS: HEPATITIS B SURFACE ANTIGEN POSITIVE (NEGATIVE)
[2019-04-05] MEDS: RIZATRIPTAN MLT 10 MG TAB PO PRN ×2 (11:11→18:24)
--- NOTE | 2019-04-05 11:41 | IPNPDOC ---
Subjective Date Seen The patient was seen on 04/05/19. Subjective Chief Complaint/HPI Patient seen and examined at the bedside. Reports that she no longer is having bloody bowel movements. States that her abdominal discomfort has improved. Denies any nausea or vomiting. Her diet has been advanced this morning. Objective Physical Examination General Exam: Positive: Alert, Cooperative, No Acute Distress, Other (morbidly obese) ENT Exam: Positive: Atraumatic, Mucous membr. moist/pink Neck Exam: Negative: JVD Chest Exam: Positive: Clear to auscultation, Normal air movement Heart Exam: Positive: Rate Normal, Normal S1, Normal S2 Abdomen Exam: Positive: Soft; Negative: Tenderness Extremity Exam: Negative: Tenderness, Swelling Neuro Exam: Positive: Normal Speech Psych Exam: Positive: Mental status NL, Mood NL, Oriented x 3 Assessment /Plan Plan/VTE VTE Prophylaxis Ordered?: Yes Plan GI Bleed 2/[address] scan of the abdomen/pelvis notable for inflammatory versus infectious colitis in the descending and sigmoid colon. We have started the patient on Flagyl/Rocephin Hgb and B/P Stable The patient's stool is no longer bloody Serial H&H's have been stable Diet Advanced We will cont to monitor the patient Elevated LFTs 2/2 above Liver U/S with no acute findings Acute Hepatitis panel with no acute findings We will cont to monitor LFTs DVT Prophylaxis SCDs/TEDs VS, I&O, 24H, Fishbone Vital Signs/I&O Vital Signs Date Time Temp Pulse Resp B/P (MAP) Pulse Ox O2 Delivery O2 Flow Rate FiO2 04/05/19 08:00 97.7 85 18 121/56 (77) 97 04/04/19 20:22 Room Air I&O- Last 24 Hours up to 6 AM 04/05/19 06:00 Intake Total 1000 ml Output Total 100 ml Balance 900 ml Laboratory Data 24H LABS Laboratory Tests 2 04/04/19 14:41: Immature Granulocyte % (Auto) 0.4, White Blood Count 8.1, Red Blood Count 4.74, Hemoglobin 15.2, Hematocrit 46.0, Mean Corpuscular Volume 97.0H, Mean Corpuscular Hemoglobin 32.1, Mean Corpuscular Hemoglobin Concent 33.0, Red Cell Distribution Width 12.2, Platelet Count 321, Neutrophils (%) (Auto) 74.8H, Lymphocytes (%) (Auto) 14.2L, Monocytes (%) (Auto) 7.4H, Eosinophils (%) (Auto) 2.7, Basophils (%) (Auto) 0.5, Neutrophils # (Auto) 6.1, Lymphocytes # (Auto) 1.2L, Monocytes # (Auto) 0.6, Eosinophils # (Auto) 0.2, Basophils # (Auto) 0.0, Nucleated Red Blood Cells % (auto) 0.0, Anion Gap 9, Glomerular Filtration Rate > 60.0, Calcium Level 9.1, Aspartate Amino Transf (AST/SGOT) 138H, Alanine Aminotransferase (ALT/SGPT) 122H, Alkaline Phosphatase 134H, Total Bilirubin 0.5, Direct Bilirubin 0.2, Total Protein 6.7, Albumin 3.6, Albumin/Globulin Ratio 1.16, Lipase 51L 04/04/19 20:53: Hepatitis A IgM Antibody NEGATIVE, Hepatitis B Surface Antigen POSITIVEH, Hepatitis B Core IgM Antibody NEGATIVE, Hepatitis C Antibody Index 0.0 04/05/19 02:44: Nucleated Red Blood Cells % (auto) 0.0, Anion Gap 7L, Glomerular Filtration Rate > 60.0, Calcium Level 8.1L, Aspartate Amino Transf (AST/SGOT) 35, Alanine Aminotransferase (ALT/SGPT) 81H, Alkaline Phosphatase 100, Total Bilirubin 0.5, Total Protein 5.9L, Albumin 2.9L, Albumin/Globulin Ratio 0.97L, Blood Urea Nitrogen 9, Creatinine 0.71, Sodium Level 142, Potassium Level 3.5, Chloride Level 109H, Carbon Dioxide Level 26, Magnesium Level 2.2 CBC/BMP Laboratory Tests 04/04/19 14:41 Red Blood Count 4.74, Mean Corpuscular Volume 97.0 H, Mean Corpuscular Hemoglobin 32.1, Mean Corpuscular Hemoglobin Concent 33.0, Red Cell Distribution Width 12.2, Neutrophils (%) (Auto) 74.8 H, Lymphocytes (%) (Auto) 14.2 L, Monocytes (%) (Auto) 7.4 H, Eosinophils (%) (Auto) 2.7, Basophils (%) (Auto) 0.5, Neutrophils # (Auto) 6.1, Lymphocytes # (Auto) 1.2 L, Monocytes # (Auto) 0.6, Eosinophils # (Auto) 0.2, Basophils # (Auto) 0.0 04/04/19 20:53 04/05/19 02:44 Red Blood Count 4.30, Mean Corpuscular Volume 94.0, Mean Corpuscular Hemoglobin 31.6, Mean Corpuscular Hemoglobin Concent 33.7, Red Cell Distribution Width 12 .3, Calcium Level 8.1 L, Aspartate Amino Transf (AST/SGOT) 35, Alanine Aminotransferase (ALT/SGPT) 81 H, Alkaline Phosphatase 100, Total Bilirubin 0.5, Total Protein 5.9 L, Albumin 2.9 L 04/05/19 09:18 Microbiology Microbiology 04/04/19 Gastrointestinal Tract Panel (PCR) - Final, Complete NICOLAS DE SOUZA MD Apr 05, 2019 11:41
[2019-04-05 12:00] VITALS: BP 112/57
[2019-04-05 15:21] LABS: HEMATOCRIT 39.8 % (36.0-47.0); HEMOGLOBIN 13.1 g/dl (12.0-15.5)
[2019-04-05 16:00] VITALS: BP 92/54
[2019-04-05 18:45] VITALS: BP 135/70
[2019-04-05 20:00] VITALS: BP 134/65
[2019-04-05] MEDS: rOPINIRole 1MG TAB PO SCH (21:04)
[2019-04-05] MEDS: VITAMIN D 1,000 INTERNATIONAL UNITS TABLET PO SCH (21:06)
[2019-04-05] MEDS: PRAVASTATIN 10 MG TAB PO SCH (21:06)
[2019-04-05] MEDS: MONTELUKAST 10 MG TAB PO SCH (21:06)
[2019-04-05] MEDS: FLUTICASONE PROP 0.05% NASAL SPRAY 16 GM (FLONASE) NARES SCH (21:34)
[2019-04-06] VITALS (8 sets, daily range): BP systolic 110–141; BP diastolic 65–77
[2019-04-06] MEDS: RIZATRIPTAN MLT 10 MG TAB PO PRN ×2 (04:44→14:45)
[2019-04-06] MEDS: METAXALONE 800 MG TABLET PO PRN (04:45)
[2019-04-06] MEDS: ACETAMINOPHEN TAB 650MG DOSE (2X325MG) PO PRN ×2 (04:49→14:48)
[2019-04-06] MEDS: SLF 3 ML SYR IV SCH ×2 (05:22→14:01)
[2019-04-06] MEDS: LEVOTHYROXINE 50MCG TABLET (0.05MG) PO SCH (05:22)
[2019-04-06 05:30] LABS: HEMATOCRIT 36.9 % (36.0-47.0); HEMOGLOBIN 12.2 g/dl (12.0-15.5); MEAN CORPUSCULAR HEMOGLOBIN 31.3 pg (27.0-33.0); MEAN CORPUSCULAR HGB CONC 33.1 g/dl (32.0-36.5); MEAN CORPUSCULAR VOLUME 94.6 fl (80.0-96.0); PLATELET COUNT, AUTOMATED 241 10^3/uL (150-450); WHITE BLOOD COUNT 5.9 10^3/uL (4.0-10.0)
[2019-04-06 05:59] LABS: ALBUMIN 2.8 GM/DL (3.2-5.2); ALT/SGPT 50 U/L (12-78); BILIRUBIN,TOTAL 0.2 MG/DL (0.2-1.0); BLOOD UREA NITROGEN 7 MG/DL (7-18); CALCIUM LEVEL 8.6 MG/DL (8.5-10.1); CARBON DIOXIDE LEVEL 27 MEQ/L (21-32); CHLORIDE LEVEL 111 MEQ/L (98-107); CREATININE FOR GFR 0.58 MG/DL (0.55-1.30); GLOMERULAR FILTRATION RATE > 60.0 (>51); GLUCOSE, FASTING 99 MG/DL (70-100); MAGNESIUM LEVEL 2.1 MG/DL (1.8-2.4); POTASSIUM SERUM 3.5 MEQ/L (3.5-5.1); SODIUM LEVEL 142 MEQ/L (136-145); TOTAL PROTEIN 5.6 GM/DL (6.4-8.2)
[2019-04-06] MEDS: cefTRIAXone SOD 1 GM in D5W MINI-BAG PLUS 50 ML IV SCH (09:03)
[2019-04-06] MEDS: CYANOCOBALAMIN 500 MCG TAB PO SCH (09:04)
[2019-04-06] MEDS: clonazePAM 1 MG TAB PO SCH (09:04)
[2019-04-06] MEDS: levETIRAcetam **XR** 750MG TABLET (KEPPRA XR) PO SCH (09:04)
[2019-04-06] MEDS: SUCRALFATE 1 GM TAB PO SCH ×3 (09:04→16:23)
[2019-04-06] MEDS: metroNIDAZOLE 500 MG in APPROPRIATE DILUENT 1 EA IV SCH ×2 (09:05→16:23)
[2019-04-06] MEDS: PANTOPRAZOLE 40MG INJ (PROTONIX) (C9113) IV SCH (09:05)
[2019-04-06] MEDS ORDERED: FLAG500T PO (10:32)
[2019-04-06] MEDS ORDERED: CIPR-249 PO (10:32)
[2019-04-06] MEDS ORDERED: NITROGLYCERIN 0.4 MG SUBL TABLET SL PRN (11:00)
[2019-04-06 12:45] LABS: CK-MB VALUE MASS < 1.0 NG/ML (<3.6); CPK CREATINE PHOSPHOKINASE 31 U/L (26-192); MB/CK RELATIVE INDEX 3.23 (< OR =4); TROPONIN I < 0.02 NG/ML (< 0.10)
[2019-04-06] MEDS ORDERED: KETOROLAC 30 MG/ML VIAL (J1885) IV PRN (13:00)
--- NOTE | 2019-04-06 15:01 | DS.PDOC ---
Discharge Summary General Date of Admission Apr 04, 2019 at 18:56 Date of Discharge 04/06/19 Discharge Summary PROCEDURES PERFORMED DURING STAY: None. ADMITTING/DISCHARGE DIAGNOSES: GI Bleed 2/2 Colitis Elevated LFTs Chest Pain of MSK Etiology COMPLICATIONS/CHIEF COMPLAINT: Lower Gi Bleed. HISTORY OF PRESENT ILLNESS: . 58-year-old female past medical history of hypertension, GERD, migraine headaches, diabetes, gastroparesis presented to ER with a chief complaint of intractable nausea/vomiting/diarrhea since 7 PM last night. The patient states that she had [employer] for dinner at 7 PM last night. She states that she ate chicken, coleslaw, and string beans. About 30 minutes after eating she states that she developed profuse nonbloody emesis with generalized abdominal pain. She also notes having significant loose nonbloody diarrheal bowel movements during this time. However, early this morning at 2 AM the patient states that she had a bright red bowel movement. Since then, she states that she has had several more. She came to the ER for further evaluation and management. In the ER, the patient had yet another bowel movement, but this time it was darker/black in color. Her hemoglobin was noted to be stable, as well as her blood pressure. A physical exam including a rectal exam done by the ER physician did not reveal any fissures or hemorrhoids. The patient will be admitted to the hospitalist service for further evaluation and management. GI Bleed 2/[address] scan of the abdomen/pelvis notable for inflammatory versus infectious colitis in the descending and sigmoid colon. We initially started the patient on Flagyl/Rocephin and have transitioned to PO Cipro/Flagyl Hgb and B/P Stable during hospitalization The patient's stool is no longer bloody , and she has been tolerating a diet with no acute complaints Serial H&H's have been stable Patient counseled to follow-up with her PCP and GI doctor in 1-2 weeks. She has also been counseled to return to the ER for any acute emergencies. Elevated LFTs 2/2 above, resolved Liver U/S with no acute findings Acute Hepatitis panel with no acute findings LFTs have returned to within normal limits Chest pain likely MSK in Etiology Chest pain is reproducible on palpation of the chest wall. EKG with no acute changes Cardiac Markers negative x 2 Patient states that she had a stress test in August of [address] [facility]win [email or web address] and this was apparently negative. She denies any history of coronary artery disease, but does state that she has mitral valve prolapse. 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 ALLERGIES: Please see below. PHYSICAL EXAMINATION ON DISCHARGE: VITAL SIGNS: Please see below. General Exam: Positive: Alert, Cooperative, No Acute Distress, Other (morbidly obese) ENT Exam: Positive: Atraumatic, Mucous membr. moist/pink Neck Exam: Negative: JVD Chest Exam: Positive: Clear to auscultation, Normal air movement Heart Exam: Positive: Rate Normal, Normal S1, Normal S2 Abdomen Exam: Positive: Soft; Negative: Tenderness Extremity Exam: Negative: Tenderness, Swelling Neuro Exam: Positive: Normal Speech Psych Exam: Positive: Mental status NL, Mood NL, Oriented x 3 LABORATORY DATA: Please see below. IMAGING: EXAM: CT Abdomen and Pelvis With Contrast EXAM DATE/TIME: 04/04/2019 8:26 PM CLINICAL HISTORY: 58 years old, female; Abdominal pain; Additional info: Abd pain TECHNIQUE: Imaging protocol: Axial computed tomography images of the abdomen and pelvis with intravenous contrast. Coronal and sagittal reformatted images were created and reviewed. Radiation optimization: All CT scans at this facility use at least one of these dose optimization techniques: automated exposure control; mA and/or kV adjustment per patient size (includes targeted exams where dose is matched to clinical indication); or iterative reconstruction. Contrast material: ISO 370; Contrast volume: 100 ml; Contrast route: IV; COMPARISON: CT ABD PELVIS W/O CONTRAST 07/21/2017 1:01 PM FINDINGS: Lungs: No suspicious mass or airspace process in the visualized lung bases. Mediastinum: Hiatal hernia measuring 8 cm is present. Liver: Liver appears normal with no focal abnormality. Gallbladder and bile ducts: Prominent central bile ducts, likely postcholecystectomy capacitance effect. Pancreas: Pancreas appears normal. No focal mass or peripancreatic inflammation. Spleen: Spleen appears homogeneous without focal mass. Adrenals: Adrenal glands are normal in appearance. Kidneys and ureters: Kidneys appear normal, with no stone, solid mass or hydronephrosis. Stomach and bowel: No evidence of small bowel obstruction. Mural edema and pericolonic stranding suggests inflammatory or infectious colitis, involving the splenic flexure through the sigmoid. Appendix: Appendix is not seen. No RLQ inflammation to suggest appendicitis. Intraperitoneal space: No pneumoperitoneum. No abnormal pelvic mass. Vasculature: Main portal and splenic veins enhance normally. Atherosclerotic change present in the aorta, without aneurysm. Lymph nodes: No enlarged lymph nodes. Bladder: Bladder appears normal. Reproductive: Unremarkable as visualized. Bones/joints: Degenerative changes are seen in the lumbar spine with disc height loss, endplate osteophytes and hypertrophic facet arthropathy. Soft tissues: Unremarkable. IMPRESSION: 1. Inflammatory or infectious colitis involving the descending and sigmoid colon. No obstruction or perforation 2. Hiatal hernia measuring 8 cm Abdominal right upper quadrant ultrasound for elevated liver function tests: Comparison is the abdomen and pelvis CT dated 04/04/2019. There is a cholecystectomy. There is dilatation of the common biliary duct measuring up to 14.8 mm transverse diameter, likely secondary to post cholecystectomy state. No intrahepatic biliary duct dilatation is identified. The hepatic parenchyma is diffusely echogenic compatible with hepato steatosis. There are no hepatic masses or cysts. The visualized hepatic parenchyma is unremarkable. Right kidney measures 9.7 x 5.3 x 4.4 cm. There is no calculus, hydronephrosis, cyst or solid mass. The right renal lower pole is obscured by bowel gas. Impression: Cholecystectomy. Common biliary dilatation, likely secondary to post cholecystectomy state. Hepato steatosis. The study is technically difficult because of body habitus and abdominal bowel gas. If there is clinical concern for biliary duct obstruction. Consider follow-up MRCP. PROGNOSIS: Fair ACTIVITY: As tolerated. DIET: As tolerated DISCHARGE PLAN: DISPOSITION: . Home DISCHARGE INSTRUCTIONS: Follow-up with primary care physician within 7 days. Follow-up with GI doctor within 1-2 weeks. Follow-up with cardiology within 2-4 weeks. Return to the ER for any acute emergencies. DISCHARGE CONDITION: Stable. TIME SPENT ON DISCHARGE: Greater than 30 minutes. Vital Signs/I&Os Vital Signs Date Time Temp Pulse Resp B/P (MAP) Pulse Ox O2 Delivery O2 Flow Rate FiO2 04/06/19 12:40 98.2 77 18 131/69 (89) 96 04/04/19 20:22 Room Air I&O- Last 24 Hours up to 6 AM 04/06/19 06:00 Intake Total 2230 ml Output Total 1850 ml Balance 380 ml Laboratory Data Labs 24H Laboratory Tests 2 04/06/19 05:12: Nucleated Red Blood Cells % (auto) 0.0, Anion Gap 4L, Glomerular Filtration Rate > 60.0, Blood Urea Nitrogen 7, Creatinine 0.58, Sodium Level 142, Potassium Level 3.5, Chloride Level 111H, Carbon Dioxide Level 27, Calcium Level 8.6, Aspartate Amino Transf (AST/SGOT) 15, Alanine Aminotransferase (ALT/SGPT) 50, Alkaline Phosphatase 83, Total Bilirubin 0.2#, Total Protein 5.6L, Albumin 2.8L, Magnesium Level 2.1, Albumin/Globulin Ratio 1.00 04/06/19 12:01: Total Creatine Kinase 31, Creatine Kinase MB < 1.0, Creatine Kinase MB Relative Index 3.23, Troponin I < 0.02 CBC/BMP Laboratory Tests 04/05/19 15:07 04/06/19 05:12 Red Blood Count 3.90 L, Mean Corpuscular Volume 94.6, Mean Corpuscular H emoglobin 31.3, Mean Corpuscular Hemoglobin Concent 33.1, Red Cell Distribution Width 12.1, Calcium Level 8.6, Aspartate Amino Transf (AST/SGOT) 15, Alanine Aminotransferase (ALT/SGPT) 50, Alkaline Phosphatase 83, Total Bilirubin 0.2 #, Total Protein 5.6 L, Albumin 2.8 L Microbiology Microbiology 04/04/19 Gastrointestinal Tract Panel (PCR) - Final, Complete Discharge Medications Scheduled Aspirin (Aspirin EC) 81 Mg Tab, 81 MG PO DAILY, (Reported) Bumetanide (Bumetanide) 1 Mg Tablet, 1 MG PO 4XWK, (Reported) WEDNESDAY/WEDNESDAY//WEDNESDAY Bumetanide (Bumetanide) 1 Mg Tablet, 2 MG PO 3XW, (Reported) WEDNESDAY/WEDNESDAY/WEDNESDAY Carvedilol (Carvedilol) 12.5 Mg Tablet, 12.5 MG PO BID, (Reported) Cholecalciferol (Vitamin D3) (Vitamin D3) 2,000 Unit Cap, 2,000 UNIT PO QHS, (Reported) Ciprofloxacin HCl (Cipro) 500 Mg Tablet, 1 TAB PO BID Clonazepam (Klonopin) 1 Mg Tab, 1 MG PO QAM, (Reported) Clonazepam (Clonazepam) 1 Mg Tab, 2 MG PO QPM, (Reported) Cyanocobalamin (Vitamin B-12) (Vitamin B-12) 1,000 Mcg Tab, 1,000 MCG PO DAILY, (Reported) Doxycycline Monohydrate (Doxycycline Monohydrate) 100 Mg Tablet, 100 MG PO DAILY, (Reported) Fluticasone Propionate (Flonase Allergy Relief) 50 Mcg/Act Spr, 50 MCG NARES QHS, (Reported) Fluticasone/Vilanterol (Breo Ellipta 100-25 Mcg INH) 1 Inh Inh, 1 INH PO DAILY, (Reported) Irbesartan (Irbesartan) 300 Mg Tablet, 300 MG PO DAILY, (Reported) Levetiracetam (Keppra Xr) 750 Mg Tab, 750 MG PO BID, (Reported) Levothyroxine Sodium (Levothyroxine Sodium) 50 Mcg Tab, 50 MCG PO DAILY, (Reported) Linaclotide (Linzess) 290 Mcg Cap, 290 MCG PO DAILY, (Reported) Metronidazole (Flagyl) 500 Mg Tablet, 1 TAB PO Q8H Montelukast Sodium (Montelukast Sodium) 10 Mg Tablet, 10 MG PO QHS, (Reported) Omeprazole (Omeprazole) 20 Mg Capsule.dr, 20 MG PO BID, (Reported) Phytonadione (Vit K1) (Vitamin K) 100 Mcg Tab, 20 MCG PO DAILY, (Reported) Potassium Chloride (Klor-Con M20) 20 Meq Tab.er.prt, 20 MEQ PO 4XWK, (Reported) WEDNESDAY/WEDNESDAY/WEDNESDAY/WEDNESDAY Potassium Chloride (Klor-Con M20) 20 Meq Tab.er.prt, 40 MEQ PO 3XW, (Reported) WEDNESDAY/WEDNESDAY/WEDNESDAY Pramipexole Di-HCl (Mirapex) 0.5 Mg Tablet, 0.5 MG PO QHS, (Reported) Pravastatin Sodium (Pravastatin Sodium) 10 Mg Tab, 10 MG PO QHS, (Reported) Ropinirole HCl (Ropinirole HCl) 1 Mg Tablet, 1 MG PO QHS, (Reported) Sucralfate (Sucralfate) 1 Gm Tablet, 1 GM PO QID, (Reported) Verapamil Hcl (Verapamil ER Pm) 300 Mg Cap, 300 MG PO QHS, (Reported) Scheduled PRN Albuterol Sulfate (Proventil Hfa) 6.7 Gm Hfa.aer.ad, 2 PUFF INH Q4H PRN for SHORTNESS OF BREATH, (Reported) Cetirizine HCl (Cetirizine HCl) 10 Mg Tablet, 10 MG PO DAILY PRN for ALLERGIES, (Reported) Dicyclomine HCl (Dicyclomine HCl) 10 Mg Capsule, 10 MG PO Q6H PRN for ABDOMINAL PAIN , (Reported) PATIENT CAN TAKE 1 OR 2 CAPSULES Diphenhydramine HCl (Benadryl) 25 Mg Cap, 25 MG PO Q6HP PRN for ITCHING, (Reported) Hydroxyzine Pamoate (Hydroxyzine Pamoate) 25 Mg Capsule, 25 MG PO Q6H PRN for ANXIETY, (Reported) Metaxalone (Metaxalone) 800 Mg Tab, 800 MG PO TID PRN for MUSCLE SPASMS, (Reported) Nitroglycerin (Nitrostat) 0.4 Mg Tab.subl, 0.4 MG SL Q5MP PRN for CHEST PAIN , (Reported) Ondansetron (Ondansetron Odt) 8 Mg Tab.rapdis, 8 MG PO Q12H PRN for NAUSEA, (Reported) Oxycodone HCl/Acetaminophen (Oxycodone-Acetaminophen 5-325) 1 Each Tablet, 1 TAB PO QID PRN for PAIN, (Reported) THIS RX HAS NOT BEEN FILLED IN A LONG TIME. PATIENT STATES SHE HAD SOME FROM [facility]. Rizatriptan Benzoate (Maxalt) 10 Mg Tab, 10 MG PO DAILY PRN for MIGRAINE, (Reported) Miscellaneous Medications [medical marijuana] , (Reported) Allergies Coded Allergies: cyclobenzaprine (Verified Allergy, Severe, breathing difficulty, 03/23/19) codeine (Verified Allergy, Intermediate, rash, 03/23/19) latex (Verified Allergy, Intermediate, rash, 03/23/19) phenylephrine (Verified Allergy, Intermediate, rash, 03/23/19) sulfamethoxazole (Verified Allergy, Intermediate, rash, swelling, 03/23/19) trimethoprim (Verified Allergy, Intermediate, rash, swelling, 03/23/19) prednisone (Verified Allergy, Unknown, 03/23/19) Sulfa (Sulfonamide Antibiotics) (Verified Adverse Reaction, Intermediate, rash, itching, swelling, 03/23/19) furosemide (Verified Adverse Reaction, Unknown, low potassium, 03/23/19) hydrochlorothiazide (Verified Adverse Reaction, Unknown, low potassium, 03/23/19) morphine (Verified Adverse Reaction, Unknown, upset stomach, 03/23/19) NICOLAS DE SOUZA MD Apr 06, 2019 15:01
[2019-04-06 18:01] LABS: CK-MB VALUE MASS < 1.0 NG/ML (<3.6); CPK CREATINE PHOSPHOKINASE 35 U/L (26-192); MB/CK RELATIVE INDEX 2.86 (< OR =4); TROPONIN I < 0.02 NG/ML (< 0.10)
--- NOTE | 2019-04-06 23:30 | ECGEPIP ---
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
== END 2019-04-06 19:17 | disposition home or self-care (01) | DRG 253 ==
LOC: M ED 14:09 → M ED INP 18:56 → M PCU 20:31
PROVIDERS: ADMIT Internal Medicine; ATTEND Internal Medicine
DX: K92.2 Gastrointestinal hemorrhage, unspecified (principal); E11.43 Type 2 diabetes mellitus with diabetic autonomic (poly)neuropathy; K52.9 Noninfective gastroenteritis and colitis, unspecified; I10 Essential (primary) hypertension; K21.9 Gastro-esophageal reflux disease without esophagitis; G43.909 Migraine, unspecified, not intractable, without status migrainosus; K44.9 Diaphragmatic hernia without obstruction or gangrene; Z79.899 Other long term (current) drug therapy; Z79.82 Long term (current) use of aspirin; Z88.5 Allergy status to narcotic agent; Z88.8 Allergy status to other drugs, medicaments and biological substances; Z91.040 Latex allergy status; Z88.2 Allergy status to sulfonamides

== ENCOUNTER → 2019-04-21 | Outpatient (REF) | payer BC ==
[~2019-04-21] MED LIST changes: +BUME1TAB3 PO; +CARV12.5 PO; +CETI10TA4 PO; +CIPR-249 PO; +DICY1CAP8 PO; +DOXY100T16 PO; +FLAG500T PO; +HYDR1CAP25 PO; +IBUP80TA PO; +IRBE300T10 PO; +KLOR20TA42 PO; +MIRA0.5T PO; +MONT10TA2 PO; +OMEP-218 PO; +ONDA8TAB8 PO
== END ==
LOC: M LAB REF 11:18
PROVIDERS: ATTEND Internal Medicine Gastroenterology
DX: R19.7 Diarrhea, unspecified (principal)

== ENCOUNTER → 2019-05-07 | Outpatient (CLI) | payer BC ==
[2019-05-07 16:58] LABS: BASO # 0.1 10^3/uL (0.0-0.2); EOS # 0.1 10^3/uL (0.0-0.50); EOS % 2.8 % (0.0-3.0); HEMOGLOBIN 14.6 g/dl (12.0-15.5); LYMPH # 1.6 10^3/uL (1.5-4.5); LYMPH % 31.1 % (24.0-44.0); MEAN CORPUSCULAR HEMOGLOBIN 31.8 pg (27.0-33.0); MEAN CORPUSCULAR HGB CONC 33.2 g/dl (32.0-36.5); MEAN CORPUSCULAR VOLUME 95.9 fl (80.0-96.0); MONO # 0.4 10^3/uL (0.0-0.8); NEUTROPHILS # 2.9 10^3/uL (1.8-7.7); NEUTROPHILS % 57.9 % (36.0-66.0); PLATELET COUNT, AUTOMATED 269 10^3/uL (150-450); RED BLOOD COUNT 4.59 10^6/uL (4.00-5.40)
[2019-05-07 17:03] LABS: ALBUMIN 3.6 GM/DL (3.2-5.2); ALT/SGPT 29 U/L (12-78); BILIRUBIN,TOTAL 0.3 MG/DL (0.2-1.0); BLOOD UREA NITROGEN 17 MG/DL (7-18); CALCIUM LEVEL 8.9 MG/DL (8.5-10.1); CARBON DIOXIDE LEVEL 26 MEQ/L (21-32); CHLORIDE LEVEL 107 MEQ/L (98-107); CREATININE FOR GFR 0.78 MG/DL (0.55-1.30); FERRITIN 19 NG/ML (8-252); FREE T4 1.06 NG/DL (0.76-1.46); GLOMERULAR FILTRATION RATE > 60.0 (>51); GLUCOSE, FASTING 100 MG/DL (70-100); IRON (FE) 72 UG/DL (50-170); PERCENT SATURATION 22.9 % (13.2-45.0); SODIUM LEVEL 143 MEQ/L (136-145); TOTAL IRON BINDING CAPACITY 314 UG/DL (250-450); TOTAL PROTEIN 6.4 GM/DL (6.4-8.2)
== END ==
LOC: M ADAMS 09:09
PROVIDERS: ATTEND Family Medicine
DX: I10 Essential (primary) hypertension (principal); E03.9 Hypothyroidism, unspecified; K31.84 Gastroparesis

== ENCOUNTER → 2019-05-29 | Outpatient (REF) | payer BC ==
[~2019-05-29] MED LIST changes: -ALBU17IN2 INH; -DOXY100T16 PO; +DOXY100T27 PO; +FLUO10CA15 PO; -FLUO10CA8 PO; -OMEP40CA2 PO; +OMEP40CA97 PO; +PROV108A INH; -VERA120T2 PO; +VERA120T9 PO; -VERA300C; -VERA300C PO; +VERA300C6; +VERA300C6 PO; +ZONI100C17 PO; -ZONI100C2 PO
[2019-05-29 13:45] LABS: CLOSTRIDIUM DIFFICILE PCR NEGATIVE (NEGATIVE)
== END ==
LOC: M LAB REF 12:04
PROVIDERS: ATTEND Internal Medicine Gastroenterology
DX: K31.84 Gastroparesis (principal)

== ENCOUNTER → 2019-05-31 | Outpatient (CLI) | payer BC ==
[~2019-05-31] MED LIST changes: +DOXY100T16 PO; -DOXY100T27 PO; -FLUO10CA15 PO; +FLUO10CA8 PO; +OMEP40CA2 PO; -OMEP40CA97 PO; +VERA120T2 PO; -VERA120T9 PO; +VERA300C; +VERA300C PO; -VERA300C6; -VERA300C6 PO; -ZONI100C17 PO; +ZONI100C2 PO
--- NOTE | 2019-06-06 03:44 | REP ---
Clinical: Gastroparesis. Sitz marker evaluation. Technique: Two supine views of the abdomen and pelvis. Findings: Approximately 16 sitz markers are identified with in the descending and sigmoid colon. The bowel gas pattern suggests underlying fecal stasis. Evidence for prior cholecystectomy. Skeletal structures intact. Impression: Fecal stasis. Sitz markers within the descending/sigmoid colon. Electronically Signed by Miah Nick MD 06/06/2019 03:35 A
== END ==
LOC: M RAD 13:13
PROVIDERS: ATTEND Internal Medicine Gastroenterology
DX: R15.9 Full incontinence of feces (principal)

== ENCOUNTER 2019-06-30 08:35 | Day surgery (SDC) | payer BC ==
[~2019-06-30] VITALS: Ht 172.7 cm; Wt 120.2 kg
[~2019-06-30 08:35] MED LIST changes: -DOXY100T16 PO; +DOXY100T27 PO; +NS 1,000 ML IV ONE; -OMEP40CA2 PO; +OMEP40CA97 PO; -VERA300C; -VERA300C PO; +VERA300C6; +VERA300C6 PO
[2019-06-30] MEDS ORDERED: PROPOFOL 200 MG/20 ML VIAL As Ordered ONE (08:43)
[2019-06-30] MEDS ORDERED: LIDOCAINE 2% INJ 100 MG/5 ML SDV (FOR ANES.) As Ordered ONE (08:43)
--- NOTE | 2019-06-30 09:57 | ROOR ---
Patient Name: Angelica Conley Procedure Date: 06/30/2019 9:29 AM Date of : 1960 Age: 58 Room: OPP02 Gender: Female Note Status: Finalized Procedure: Colonoscopy Indications: Abnormal CT of the GI tract, Follow-up of mucosal ischemia/colitis related to fecal impaction, severe constipation. Providers: Anthony HENDERSON MD Referring MD: Lidia HARDIN DO Requesting Provider: Medicines: Monitored Anesthesia Care Complications: No immediate complications. Procedure: Pre-Anesthesia Assessment: - The heart rate, respiratory rate, oxygen saturations, blood pressure, adequacy of pulmonary ventilation, and response to care were monitored throughout the procedure. The Colonoscope was introduced through the anus and advanced to 10 cm into the ileum. The colonoscopy was performed without difficulty. The patient tolerated the procedure well. The quality of the bowel preparation was good. Findings: Three sessile polyps were found in the sigmoid colon and splenic flexure. The polyps were diminutive in size. These polyps were removed with a cold snare. Resection and retrieval were complete. The exam was otherwise normal throughout the examined colon. The terminal ileum appeared normal. Impression: - Three diminutive polyps in the sigmoid colon and at the splenic flexure, removed with a cold snare. Resected and retrieved. - The colon was otherwise normal. - The examined portion of the ileum was normal. Recommendation: - Repeat colonoscopy in 5 years for surveillance. - Miralax 1 capful (17 grams) in 8 ounces of water PO BID indefinitely. - Use Linzess (linaclotide) 290 mcg PO daily. Anthony Henderson MD Anthony HENDERSON MD 06/30/2019 9:56:37 AM Electronically signed by Anthony HENDERSON MD Number of Addenda: 0 Note Initiated On: 06/30/2019 9:29 AM Estimated Blood Loss: Estimated blood loss: none.
[2019-06-30 10:20] VITALS: BP 145/88
== END 2019-06-30 10:27 | disposition home or self-care (01) ==
LOC: M OPP 08:35
PROVIDERS: ATTEND Internal Medicine Gastroenterology
DX: D12.5 Benign neoplasm of sigmoid colon (principal); D12.3 Benign neoplasm of transverse colon; K55.039 Acute (reversible) ischemia of large intestine, extent unspecified; R93.3 Abnormal findings on diagnostic imaging of other parts of digestive tract; K21.9 Gastro-esophageal reflux disease without esophagitis; K92.1 Melena; I50.9 Heart failure, unspecified; Z79.899 Other long term (current) drug therapy; Z88.2 Allergy status to sulfonamides; Z88.5 Allergy status to narcotic agent; Z88.8 Allergy status to other drugs, medicaments and biological substances; Z91.040 Latex allergy status

== ENCOUNTER → 2019-07-17 | Outpatient (REF) | payer BC ==
[~2019-07-17] MED LIST changes: -NS 1,000 ML IV ONE
[2019-07-17 13:13] LABS: C REACTIVE PROTEIN QUANTITATIV 0.32 MG/DL (0.00-0.30); RHEUMATOID FACTOR QUANT < 10.0 IU/ML (<15.0)
[2019-07-19 00:06] LABS: ANA (HEP2) Positive (.)
== END ==
LOC: M SFHCADAM 09:18
PROVIDERS: ATTEND Internal Medicine Rheumatology
DX: M25.50 Pain in unspecified joint (principal)

== ENCOUNTER → 2019-07-17 | Outpatient (CLI) | payer BC ==
--- NOTE | 2019-07-18 02:52 | REP ---
Clinical: Joint pain. Technique: AP weightbearing view of the right and left knee. Findings: The right knee demonstrates moderate arthritic changes including subchondral sclerosis, lateral osteophytosis, and joint space narrowing. Intramedullary changes primarily noted in the tibial metaphysis and possibly within the intercondylar portion of the femur are noted and may represent degenerative change or sequelae from prior surgery such as ACL repair. Correlation is recommended. The left knee demonstrates mild arthritic change including subtle increase sclerosis along the medial tibial plateau minimal medial joint space narrowing. Impression: Primarily right-sided arthritic changes. Electronically Signed by Miah Nick MD 07/18/2019 02:43 A
--- NOTE | 2019-07-18 02:53 | REP ---
Clinical: Pain. Technique: AP, lateral, bilateral oblique views of the right and left hand. Findings: Left hand demonstrates subchondral sclerosis and joint space narrowing involving the interphalangeal joints and first metacarpophalangeal joint. Remainder examination appears relatively normal for age. No osteophytosis, periarticular swelling, loose bodies or erosive changes are appreciated. Right hand demonstrates subchondral sclerosis and joint space narrowing involving the interphalangeal joints and first metacarpophalangeal joint. Remainder examination appears relatively normal for age. No osteophytosis, periarticular swelling, loose bodies or erosive changes are appreciated. Impression: Mild osteoarthritic degenerative changes. Electronically Signed by Miah Nick MD 07/18/2019 02:43 A
== END ==
LOC: M ADAMS 10:36
PROVIDERS: ATTEND Internal Medicine Rheumatology
DX: M19.041 Primary osteoarthritis, right hand (principal); M19.042 Primary osteoarthritis, left hand; M17.31 Unilateral post-traumatic osteoarthritis, right knee

== ENCOUNTER → 2019-10-30 | Outpatient (CLI) | payer BC ==
[~2019-10-30] MED LIST changes: +FLUO10CA15 PO; -FLUO10CA8 PO; -IRBE300T10 PO; +IRBE300T7 PO; -MONT10TA2; -MONT10TA2 PO; +MONT10TA4; +MONT10TA4 PO; -ROPI1TAB PO; +ROPI1TAB3 PO; -VERA120T2 PO; +VERA120T9 PO; +ZONI100C17 PO; -ZONI100C2 PO
[2019-10-30 13:32] LABS: BASO % 0.7 % (0.0-1.0); EOS # 0.2 10^3/uL (0.0-0.5); EOS % 3.1 % (0.0-3.0); HEMATOCRIT 41.5 % (36.0-47.0); HEMOGLOBIN 13.7 g/dl (12.0-15.5); LYMPH # 1.4 10^3/uL (1.5-5.0); LYMPH % 24.7 % (24.0-44.0); MEAN CORPUSCULAR HEMOGLOBIN 30.5 pg (27.0-33.0); MEAN CORPUSCULAR VOLUME 92.4 fl (80.0-96.0); MONO # 0.4 10^3/uL (0.0-0.8); MONO % 6.6 % (0.0-5.0); NEUTROPHILS # 3.8 10^3/uL (1.5-8.5); NEUTROPHILS % 64.6 % (36.0-66.0); PLATELET COUNT, AUTOMATED 312 10^3/uL (150-450); RED BLOOD COUNT 4.49 10^6/uL (4.00-5.40); WHITE BLOOD COUNT 5.8 10^3/uL (4.0-10.0)
[2019-10-30 14:10] LABS: ALBUMIN 3.9 GM/DL (3.2-5.2); ALT/SGPT 32 U/L (12-78); BILIRUBIN,TOTAL 0.4 MG/DL (0.2-1.0); BLOOD UREA NITROGEN 13 MG/DL (7-18); CALCIUM LEVEL 9.4 MG/DL (8.5-10.1); CARBON DIOXIDE LEVEL 27 MEQ/L (21-32); CHLORIDE LEVEL 108 MEQ/L (98-107); CREATININE FOR GFR 0.72 MG/DL (0.55-1.30); FREE T4 1.02 NG/DL (0.76-1.46); GLOMERULAR FILTRATION RATE > 60.0 (>51); GLUCOSE, FASTING 112 MG/DL (70-100); POTASSIUM SERUM 4.3 MEQ/L (3.5-5.1); SODIUM LEVEL 141 MEQ/L (136-145); TOTAL PROTEIN 6.8 GM/DL (6.4-8.2)
[2019-10-30 14:15] LABS: MALB URINE SIEMENS 14.8 MG/L; MAU/CREAT RATIO 5.7 MCG/MG (0.0-30.0)
== END ==
LOC: M WUC 10:40
PROVIDERS: ATTEND Family Medicine
DX: E11.9 Type 2 diabetes mellitus without complications (principal)

== ENCOUNTER → 2020-02-23 | Outpatient (CLI) | payer BC ==
[2020-02-23 11:13] LABS: BASO % 0.8 % (0.0-1.0); EOS # 0.2 10^3/uL (0.0-0.5); HEMATOCRIT 41.1 % (36.0-47.0); HEMOGLOBIN 13.4 g/dl (12.0-15.5); LYMPH # 1.6 10^3/uL (1.5-5.0); LYMPH % 31.8 % (24.0-44.0); MEAN CORPUSCULAR HEMOGLOBIN 30.9 pg (27.0-33.0); MEAN CORPUSCULAR HGB CONC 32.6 g/dl (32.0-36.5); MEAN CORPUSCULAR VOLUME 94.7 fl (80.0-96.0); MONO # 0.4 10^3/uL (0.0-0.8); MONO % 7.3 % (0.0-5.0); NEUTROPHILS # 2.8 10^3/uL (1.5-8.5); NEUTROPHILS % 56.9 % (36.0-66.0); PLATELET COUNT, AUTOMATED 277 10^3/uL (150-450); RED BLOOD COUNT 4.34 10^6/uL (4.00-5.40); WHITE BLOOD COUNT 4.9 10^3/uL (4.0-10.0)
[2020-02-23 11:27] LABS: ALBUMIN 3.5 GM/DL (3.2-5.2); ALT/SGPT 21 U/L (12-78); BILIRUBIN,TOTAL 0.3 MG/DL (0.2-1.0); BLOOD UREA NITROGEN 17 MG/DL (7-18); CALCIUM LEVEL 8.8 MG/DL (8.5-10.1); CARBON DIOXIDE LEVEL 29 MEQ/L (21-32); CHLORIDE LEVEL 109 MEQ/L (98-107); CHOLESTEROL LEVEL 206 MG/DL (<200); CHOLESTEROL RISK RATIO 2.543 (<5); CREATININE FOR GFR 0.72 MG/DL (0.55-1.30); FREE T4 1.03 NG/DL (0.76-1.46); GLOMERULAR FILTRATION RATE > 60.0 (>51); GLUCOSE, FASTING 120 MG/DL (70-100); HDL CHOLESTEROL 81 MG/DL (>40); LDL CHOLESTEROL 98 MG/DL (<100); NON-HDL-C 125 MG/DL; POTASSIUM SERUM 4.3 MEQ/L (3.5-5.1); SODIUM LEVEL 144 MEQ/L (136-145); TOTAL PROTEIN 6.4 GM/DL (6.4-8.2); TRIGLYCERIDES LEVEL 135 MG/DL (<150); VITAMIN B12 LEVEL 993 PG/ML
[2020-02-23 11:28] LABS: FOLATE 5.1 NG/ML
[2020-02-23 11:44] LABS: HEMOGLOBIN A1c 6.2 %
== END ==
LOC: M PLALAB 08:48
PROVIDERS: ATTEND Physician Assistant
DX: E11.9 Type 2 diabetes mellitus without complications (principal); E06.3 Autoimmune thyroiditis; I10 Essential (primary) hypertension